=== PATIENT | male | born 1970 | race Caucasian/White ===

== ENCOUNTER 2022-10-24 11:51 | Emergency (ER) | payer OTHER, SELFPAY ==
--- NOTE | ~2022-10-24 | CT_ITS ---
EXAMINATION: CT FACIAL BONES WITH CONTRAST CLINICAL INFORMATION: Right facial swelling. Poor dentition. COMPARISON: Head CT 11/02/2011 TECHNIQUE: Multidetector CT imaging of the maxillofacial bones was performed following the uneventful administration of 85 mL Omnipaque 350 intravenous contrast. Coronal and sagittal reformatted images were obtained. This CT examination was performed using dose optimization techniques as appropriate, variously including the following: *Automated exposure control *Adjustment of mA and/or kV according to patient size (this includes techniques or standardized protocols for targeted exams where dose is matched to indication/reason for exam; i.e. extremities or head) *Use of iterative reconstruction technique DLP: 440 mGy-cm FINDINGS: Enlarged right level II lymph nodes measure 0.7 x 0.9 x 1.1 cm and 1.2 x 0.7 x 1.6 cm. There is asymmetric infiltration of the right mandibular subcutaneous tissues with overlying skin thickening. There is asymmetric soft tissue thickening of the right orbicularis cordell, zygomaticus major and levator anguli cordell muscles. Left mandibular molar appears fragmented with large periapical lucency. There are multiple maxillary periapical lucencies as well as lucencies involving the right maxillary molar, right mandibular premolars and bilateral mandibular incisors. The largest lucencies are within tooth #44 and within tooth #16. No evidence of displaced maxillofacial bone fractures. The temporomandibular joints articulate normally. Normal appearance of the intraconal and extraconal fat. There is There is marked opacification of the right maxillary sinus and ethmoid air cells. Mastoid air cells are clear. There is medial bowing of the right lamina papyracea which may be related to previous trauma. CT/CT facial bones w IV con IMPRESSION: Large lucencies involving the teeth numbered 16 and 44 on the right side most likely contributing to soft tissue thickening of the right facial muscles, infiltration of the subcutaneous tissues and overlying skin thickening. This most likely represents phlegmon and cellulitis. There is no focal/drainable fluid collection. Enlarged right level II lymph nodes are likely on a reactive basis. Extensive opacification of the right maxillary sinus and ethmoid air cells.
--- NOTE | 2022-10-24 12:00 | ED.GENADULT ---
HPI - General Adult General Chief complaint: General Medical Stated complaint: Facial swelling Time Seen by Provider: 10/24/22 12:14 Source: patient Mode of arrival: ambulatory Limitations: no limitations History of Present Illness HPI narrative: 52-year-old male presents with facial swelling for the past 4 days worsening, patient reports he is having some soreness to his right lower gum, he reports he has bad teeth has not seen a dentist in a while, is in the process of getting a PCP has an appointment with a PCP in the next 2 weeks, he reports that he has multiple fractured teeth and cavities, he reports he wants to see a dentist soon. Denies fevers, chills, difficulty controlling secretions, chest pain, shortness of breath, sore throat, nausea, vomiting, numbness, tingling, headache, vision changes in dizziness. Related Data Previous Rx's Medication Instructions Recorded amoxicillin 875 mg-potassium 1 tab PO BID 10 days #20 tabs 10/24/22 clavulanate 125 mg tablet Allergies Allergy/AdvReac Type Severity Reaction Status Date / Time hydrochlorothiazide Allergy Unknown Unknown Verified 10/24/22 12:00 Review of Systems Review of Systems: Constitutional : No Weight loss, No Fever, No Chills, No Fatigue, No Malaise ENT/Mouth : No sore throat, No Rhinorrhea, + facial swelling Eyes: No Eye Pain, No Swelling, No Redness Cardiovascular : No Chest Pain, No SOB, No Dyspnea on Exertion, No Orthopnea, No Edema, No Palpitations Respiratory : No Cough, No Sputum, No Wheezing Gastrointestinal : No Nausea, No Vomiting, No Diarrhea, No Constipation, No abdominal Pain, No Hematochezia, No Melena Genitourinary : No Dysuria, No Urinary Frequency, No Hematuria, Musculoskeletal : No joint pain, No Myalgias, No Joint Swelling Skin : No Skin Lesions, No rash Neuro : No Weakness, No Numbness, No Dizziness, No Headache Psych : No Anxiety/Panic, No Depression All other systems reviewed and are negative Yes all other systems are reviewed and are negative [facility] Past Medical History Attestation statement: The following information was validated with the patient. Source: old records reviewed and nursing notes reviewed Social History Social History Alcohol intake: never Smoked in Last 30 Days: No Use of substances other than those prescribed or required for medical reasons: No Advance Directives: No Advance Directives Information Provided: Yes Physical Exam ED Vital Signs: Vital Signs - 24 hr 10/24/22 12:01 Temperature 98 F Pulse Rate 100 Respiratory Rate 19 Blood Pressure 155/104 H Pulse Oximetry 100 Oxygen Delivery Method Room Air BMI result Body Mass Index 28.6 vital signs stable slightly hypertensive likely secondary to pain/discomfort Appearance: Alert.? Oriented X3.? No acute distress.? Head: Normocephalic, atraumatic, no step-offs or deformities Eyes: Pupils equal, round and reactive to light.? ENT: Pharynx normal.? uvula midline. Speaking in full sentences controlling secretions well. + There is swelling noted to the right cheek, and there is discomfort with palpation of right lower gum region, poor dentition throughout with multiple fractured teeth, dental caries, halitosis noted. Unable to appreciate any dental abscess. no trismus Neck: Normal inspection.? Neck supple.? CVS: Normal heart rate and rhythm.? Pulses normal.? Respiratory: No respiratory distress.? Breath sounds normal.? Abdomen: Soft and nontender.? Skin: Skin warm and dry.? Normal skin color.? Normal skin turgor.? Extremities: No lower extremity edema.? No calf ttp. 5/5 strength to bilateral upper and lower extremities Back: No midline tenderness, no C-spine tenderness, full range of motion, no CVA tenderness bilaterally Neuro: Oriented X 3.? No motor deficit.? No sensory deficit. CN 2-12 intact Course Course Course Narrative: RME: 52yo M w/no sig PMHx c/o right-sided facial swelling/discomfort since last night. Reports chronic broken teeth to right side. Denies known drainage, fever/chills, difficulty or inability to swallow Right-sided lower facial swelling noted with induration. Poor dentition. No appreciable focal area of fluctuance. Labs, CT ordered Full HPI, ROS and PE to be performed by primary ED provider. Reevaluation(s) Reevaluation #1: CBC with no acute findings. Chemistry unremarkable. Random glucose 425 will give 5 units of subcutaneous insulin, scheduled to see PCP for follow up in two weeks advised him to speak to him about his sugars. CT of face pending. Time: 14:13 Reevaluation #2: patient refusing insulin and states he is now allergic to prednisone so does not want for home. Will discharge him home on Augmentin. No signs of abscess on CT scan, there is cellulitis noted. Discussed case with my attending who agrees with diagnosis and treatment plan. Educated patient on diagnosis and treatment plan, answered all question, patient verbalizes understanding. At this time patient will be discharged home, advised to return with new or worsening symptoms. Educated on worrisome signs and symptoms and when to return. At this time I feel comfortable discharge home. Time: 14:20 Medications Administered Discontinued Medications Generic Name Dose Route Start Last Admin Trade Name Freq PRN Reason Stop Dose Admin Iohexol 100 ml 10/24/22 13:12 10/24/22 13:13 Iohexol 350 Mg/Ml 100 Ml Infus..Btl IV 10/24/22 13:13 85 ml ONCE ONE Administration Medical Decision Making Medical Decision Making [facility] Narrative: 52-year-old male presents with right-sided facial swelling and gum pain, worsening overthe past 3-4 days. Physical examination with right-sided facial swelling, Pharynx normal.? uvula midline. Speaking in full sentences controlling secretions well. + There is swelling noted to the right cheek, and there is discomfort with palpation of right lower gum region, poor dentition throughout with multiple fractured teeth, dental caries, halitosis noted. Unable to appreciate any dental abscess. no trismus likely poor dentition with possible cellulitis or abscess. Unlikely Clayton's, no signs of airway compromise or necrotizing infection. Plan labs, CT scan Differential Diagnosis Differential Diagnoses: The differential diagnosis associated with the presentation includes likely poor dentition with possible cellulitis or abscess. Unlikely Clayton's, no signs of airway compromise or necrotizing infection. Admission/Observation Consideration of admission/observation: Escalation of care including admission/observation considered unlikely Lab Data [facility] Lab Attestation statement: I reviewed the patient's lab results. 10/24/22 12:14 10/24/22 12:14 Labs: Lab Results 10/24/22 10/24/22 Range/Units 12:14 12:14 WBC 9.3 (4.8-10.8) X10*3/uL RBC 5.46 (4.60-5.80) X10*6/uL Hgb 16.8 (14.0-18.0) g/dl Hct 49.2 (42.0-52.0) % MCV 90.1 (80.0-98.0) fL MCH 30.8 (27.0-33.0) pg MCHC 34.1 (31.0-36.0) g/dl RDW 12.6 (11.0-16.0) % Plt Count 142 L (160-400) X10*3/uL MPV 9.9 (9.4-12.4) fL Immature Gran % (Auto) 0.4 (0.0-0.4) % Neut % (Auto) 74.4 H (45-73) % Lymph % (Auto) 16.9 L (20-40) % Ashe % (Auto) 6.3 (2-11) % Eos % (Auto) 1.7 (0-4) % Baso % (Auto) 0.3 (0-2) % Lymph # (Auto) 1.6 (1.2-4.9) X10*3/uL Ashe # (Auto) 0.6 (0.1-1.2) X10*3/uL Eos # (Auto) 0.2 (0.0-0.4) X10*3/uL Baso # (Auto) 0.0 (0.0-0.2) X10*3/uL Abs Immat Gran (auto) 0.04 H (0.00-0.03) X10*3/uL Absolute Neuts (auto) 6.9 (2.0-8.3) x10*3/uL Absolute Nucleated RBC 0.000 (0.0-0.012) X10*3/uL Nucleated RBC % (auto) 0.0 (0.0-0.2) /100WBC Sodium 137 (135-145) mmol/L Potassium 4.2 (3.3-5.1) mmol/L Chloride 102 (96-108) mmol/L Carbon Dioxide 27 (22-29) mmol/L Anion Gap 12 (12-20) BUN 17 H (9-16) mg/dL Creatinine 1.35 (0.5-1.4) mg/dL Estim Creat Clear Calc 83.0 Estimated GFR 56 Random Glucose 425 H* (60-115) mg/dL Calcium 9.4 (8.4-10.2) mg/dL Independent Interpretation I performed an independent interpretation of an: CT Scan Radiology Impression Discussion of test interpretation with radiology: I have reviewed the radiologist's reading. Core Measures AMI core measures followed: Yes Measure exclusions: not indicated Critical Care Time Critical Care Time Critical Care Time: No Discharge Plan Discharge Clinical Impression: Facial swelling, Dental caries, Poor dentition, High blood sugar, Cellulitis Patient Disposition: Home, Self-Care Instructions: Tooth Extraction (DC) Additional Instructions: Take your medications as prescribed. If you were prescribed antibiotics today, it is important that you take your medication to their entirety, do not skip any doses, do not finish them early. Follow-up with your primary care provider this week. Return to the emergency department with new or worsening symptoms. Such as fevers, chills, chest pain, shortness of breath, nausea, vomiting, dizziness, headache, vision changes, lethargy , worsening swelling, trouble controlling your secretions In case of emergency call 911 your noted to have a high sugar here in the department please address this with your primary care provider. CT/CT facial bones w IV con IMPRESSION: Large lucencies involving the teeth numbered 16 and 44 on the right side most likely contributing to soft tissue thickening of the right facial muscles, infiltration of the subcutaneous tissues and overlying skin thickening. This most likely represents phlegmon and cellulitis. There is no focal/drainable fluid collection. ? Enlarged right level II lymph nodes are likely on a reactive basis. ? Extensive opacification of the right maxillary sinus and ethmoid air cells. Prescriptions: New amoxicillin-pot clavulanate 875-125 mg tablet 1 tab PO BID 10 Days Qty: 20 0RF Referrals: [facility] [Primary Care Provider] - 2 days
[2022-10-24 12:01] VITALS: BP 155/104; PULSE 100; RESP 19; TEMP 36.6; O2SAT 100; BMI 28.6
[2022-10-24 12:23] LABS: MANUAL DIFF FLAG NO
[2022-10-24 12:29] LABS: Basophils Percent Auto 0.3 % (0-2); Eosinophils Absolute Auto 0.2 X10*3/uL (0.0-0.4); Eosinophils Percent Auto 1.7 % (0-4); Hematocrit 49.2 % (42.0-52.0); Hemoglobin 16.8 g/dl (14.0-18.0); Imm Gran Abs Auto 0.04 X10*3/uL (0.00-0.03); Imm Gran Pct Auto 0.4 % (0.0-0.4); Lymphocytes Absolute Auto 1.6 X10*3/uL (1.2-4.9); Lymphocytes Percent Auto 16.9 % (20-40); Mean Corpuscular HGB Conc 34.1 g/dl (31.0-36.0); Mean Corpuscular Hemoglobin 30.8 pg (27.0-33.0); Mean Corpuscular Volume 90.1 fL (80.0-98.0); Mean Platelet Volume 9.9 fL (9.4-12.4); Monocytes Absolute Auto 0.6 X10*3/uL (0.1-1.2); Monocytes Percent Auto 6.3 % (2-11); Neutrophils Absolute Auto 6.9 x10*3/uL (2.0-8.3); Neutrophils Percent Auto 74.4 % (45-73); Platelet Count 142 X10*3/uL (160-400); Red Blood Count 5.46 X10*6/uL (4.60-5.80); Red Cell Distribution Width 12.6 % (11.0-16.0); White Blood Count 9.3 X10*3/uL (4.8-10.8)
[2022-10-24 12:40] LABS: Anion Gap 12 (12-20); Blood Urea Nitrogen 17 mg/dL (9-16); Calcium 9.4 mg/dL (8.4-10.2); Carbon Dioxide 27 mmol/L (22-29); Chloride 102 mmol/L (96-108); Estimated Glomerular Filt Rate 56; Glucose Random 425 mg/dL (60-115); Potassium 4.2 mmol/L (3.3-5.1); Sodium 137 mmol/L (135-145)
--- NOTE | 2022-10-24 12:49 | PC.NURSE ---
20G IV placed in right AC- pt to have CT with contrast, answered all questions, call forte within reach
--- NOTE | 2022-10-24 12:50 | PC.NURSE ---
AUGUSTUS Akins notified of critical glucose level, no new orders at this time
[2022-10-24] MEDS: iohexoL 350 MG/ML 100 ML INFUS..BTL IV (13:13)
--- NOTE | 2022-10-24 14:20 | PC.NURSE ---
5 units lispro ordered for critical high of 423- pt refusing insulin at this time. 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
--- NOTE | 2022-10-24 14:36 | PC.NURSE ---
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 advised pt of importance on insulin, and the effects of high blood sugar. pt refuses. pt also sts he is allergic to prednisone. provider aware.
== END 2022-10-24 14:42 | disposition home or self-care (01) ==
PROVIDERS: Physician Assistant; Emergency Provider Emergency Medicine
DX: L03.211 Cellulitis of face (principal); K02.9 Dental caries, unspecified; R73.9 Hyperglycemia, unspecified
CPT/HCPCS: 36415; 70487; 80048; 85025; 99283; 99284; Q9967

== ENCOUNTER 2023-12-09 12:38 | Emergency (ER) | payer OTHER, SELFPAY ==
--- NOTE | ~2023-12-09 | US_ITS ---
EXAMINATION: US VENOUS ULTRASOUND WITH DOPPLER LOWER EXTREMITY, LEFT CLINICAL INFORMATION: Pain COMPARISON: Lower extremity ultrasound 520 05/16/2010 TECHNIQUE: Ultrasound of the deep veins is performed from the hip to the calf with compression sonography and color and pulse Doppler assessment. Spectral analysis with color-flow imaging is performed. FINDINGS: There is normal venous compression and respiratory variation and augmented flow. The visualized common femoral vein, superficial femoral vein, profunda femoral vein, popliteal vein, and the trifurcation region shows no evidence of deep venous thrombosis. A 6 cm complex fluid collection in the popliteal fossa which may reflect a complex Parry's cyst. US/US venous duplex LE LT IMPRESSION: 1. No DVT demonstrated in the left lower extremity. 2. A 6 cm complex fluid collection in the popliteal fossa which may reflect a complex Parry's cyst.
--- NOTE | 2023-12-09 12:43 | ED_ITS ---
HPI - Extremity Injury (Lower) General Chief Complaint: Wound/Laceration Stated Complaint: L leg/knee inj Time Seen by Provider: 12/09/23 13:01 Source: patient Mode of arrival: ambulatory Limitations: no limitations History of Present Illness ED Provider: Blanca Delaney APRN HPI Narrative: 53 yo male here with complaints of acute on chronic LLE pain/swelling x 2 weeks. Reports had had intermittent pain/swelling since 2010. Reports initially had an abscess' in the left calf which he was seen at [facility] ER for. They recommended drainage, ultimately he left AMA and proceeded to drain it at home with both a needle and scalpel. Reports has had subsequent cellulitis to the left lower extremity several times and has been on antibiotics. He reports he has been seen at 3 different hospitals as well as Infectious Disease doctors for this. Patient reports some chronic swelling which has lingered in the left lower extremity which he believes is secondary to his HSV diagnosis and he has been ordering acyclovir from [facility] which he has been taking at home. He tells me he follows a holistic diet and takes anti-inflammatory such as tumeric at home and he believes he is quite healthy. He does not currently have a primary care doctor. He saw a PCP 1 year ago after an ER visit which he was noted to have hypertension and hyperglycemia however he was unhappy with this doctor's recommendations and did not follow-up. He has declined take blood pressure and diabetes medications to this point as he is concerned it will cause a reactivation of his HSV. He contributes his hypertension and tachycardia to white coat syndrome although he has never checked his blood pressure at home. He believes his blood sugar may be elevated because he has been drinking ice tea daily with sugar. He smokes cigarettes daily. Denies alcohol or drug use. Related Data Previous Rx's ?Medication ?Instructions ?Recorded blood sugar diagnostic (Freestyle #100 ea 12/09/23 [employer] Test Strips) blood-glucose meter #1 ea 12/09/23 lancets 28 gauge (FreeStyle #100 ea 12/09/23 Lancets) metformin 500 mg tablet 500 mg PO BID #60 tabs 12/09/23 Allergies Allergy/AdvReac Type Severity Reaction Status Date / Time hydrochlorothiazide Allergy Unknown Unknown Verified 12/09/23 12:48 prednisone Allergy Unknown Verified 12/09/23 12:48 Review of Systems 2 Review of Systems: Yes all other systems are reviewed and are negative Constitutional: Constitutional: Reports no additional constitutional complaints, Denies body ache(s), Denies chills, Denies fever(s), Denies headache(s) and Denies weakness Eyes: Eyes: Reports no additional eye complaints and Denies change in vision ENT: Reports system reviewed and no additional complaints, except as documented, Denies dizziness, Denies headache(s), Denies nasal congestion, Denies nasal discharge and Denies neck pain Cardiovascular: Cardiovascular: Reports no additional cardiovascular complaints, Denies chest pain, Reports leg edema and Denies dyspnea Respiratory: Respiratory: Reports no additional respiratory complaints, Denies cough and Denies dyspnea Gastrointestinal: Gastrointestinal: Reports no additional gastrointestinal complaints, Denies abdominal pain, Denies diarrhea, Denies nausea and Denies vomiting Genitourinary: Genitourinary: Denies urinary incontinence Musculoskeletal: Musculoskeletal: Reports no additional musculoskeletal complaints, Denies back pain, Denies arthralgias, Denies joint swelling, Denies neck pain, Denies numbness and Denies tingling Integumentary/Breasts: Skin/Breast: Reports system reviewed and no additional complaints, except as docu and Denies rash Neurologic: Reports system reviewed and no additional complaints, except as documented, Denies Abnormal speech present, Denies dizziness, Denies headache(s), Denies numbness, Denies tingling and Denies weakness PMFSH Past Medical History Attestation statement: The following information was validated with the patient. Source: old records reviewed and nursing notes reviewed Medical History No pertinent family history HSV-1 (herpes simplex virus 1) infection Surgical History H/O right wrist surgery Social History Social History Housing: House Alcohol intake: never Patient Tobacco Use Status: Former Tobacco user Tobacco use type: Cigarette Cigarettes Per Day: 5 Years Smoked: 35 e-Cigarette/Vaping Use: Never Used Advance Directives: No Advance Directives Information Provided: No Do you have a plan to hurt others: No Plan service: No Current occupational status: disabled Cognitive needs: No Hearing needs: No Vision needs: No Physical Exam 2 Vital Signs: Vital Signs: Last Vital Signs Temp 97.8 F 12/09/23 15:43 Pulse 111 H 12/09/23 15:43 Resp 20 12/09/23 15:43 BP 174/102 H 12/09/23 15:43 Pulse Ox 97 12/09/23 15:29 O2 Del Method Room Air 12/09/23 15:29 BMI result Body Mass Index 25.7 Const: General: cooperative, healthy appearing, comfortable and no acute distress Orientation/consciousness: patient oriented x3 Limitations: no limitations HEENT: Head: Yes normal to inspection Ears: hearing grossly normal bilaterally General nose exam: Normal external nose present Face and sinus: Yes normal facial exam Mouth: Normal oral and palatal mucosa present Throat: Yes posterior oropharynx normal Eyes: General: appearance normal, both eyes and all related structures P upils: Equal, round and reactive pupils present Neck: Neck: Yes normal visual inspection Chest: Chest palpation & inspection: normal inspection of the chest Resp: Effort & Inspection: normal respiratory effort Auscultation: clear to auscultation bilaterally Cardio: Rate: regular rate Rhythm: regular rhythm Peripheral pulses: P eripheral pulses 2+ throughout GI: Inspection: Yes normal to inspection Palpation (GI): Soft to palpation and nontender Auscultation: normal bowel sounds Back/Spine/Pelvis: Thoracic/Lumbar Spine: thoracic and lumbar spine normal to inspection Skin: General skin exam: no rashes or lesions noted Neuro: General: patient oriented x3, no focal motor deficits and normal sensation to monofilament Cranial nerves: Yes Equal, round and reactive pupils present Cognition (Neuro): normal cognition Speech: No Abnormal speech present Gait exam (Neuro): Normal gait present Motor exam (neuro): 5/5 motor strength present throughout Extrem: Other: There is some swelling over the medial aspect and posterior aspect of the left knee as well some slight lower extremity swelling which is nonpitting. Patient has normal CMS distally. His compartments are soft and compressible. There is no warmth, redness, open areas noted. General: Yes normal to inspection Course Course Course Narrative: This is a Rapid Medical Exam performed in triage by Mary Pereira PA-C. Full HPI, ROS and PE to be performed by primary ED provider. 53 year-old M w/ PMHx HTN, ?HSV (states ID from [facility] [place] [facility] but he get meds from other country[place] presenting to the ED c/o acute on chronic LLE pain x2 wks. Reports intermittent flares of pain/infection to leg from old leg injury which has required IV abx in the past PE: In wheelchair, no LLE pitting edema, no erythema or warmth. +calf ttp. Unable to visualize knee in triage Plan: labs, US Reevaluation(s) Reevaluation #1: Labs show hyperglycemia with no evidence of DKA. Patient declined insulin and IV fluids in the emergency room. He initially declined going home with any diabetic medications however after a shared his A1c with him he was more willing to accept his diabetes diagnosis. I will discharge him home with a glucometer, metformin 500 mg b.i.d. He did see a PCP last October who was not happy with however he would be willing to see him again until he finds a primary care doctor that he prefers. We discussed diabetic diet at home. Patient for tells me he knows how to check his blood sugar at home and use a glucometer as he has done it before (for a friend). As far as his hypertension he was unwilling to accept any antihypertensive prescriptions for home. He is willing to check his blood pressure at home will buy a blood pressure machine. I did explain to him that untreated hypertension can be quite dangerous and he is aware of this. I informed of his results of his ultrasound and he was placed in the Nacho wrap and he has crutches at home which he will use. Reviewed worrisome signs and symptoms of when to return to the emergency room. Comfortable plan for discharge home Medications Administered Discontinued Medications Generic Name Dose Route Start Last Admin Trade Name Nash PRN Reason Stop Dose Admin Acetaminophen 975 mg 12/09/23 14:32 12/09/23 14:38 Acetaminophen 325 Mg Tablet PO 12/09/23 14:33 975 mg ONCE ONE Administration Medical Decision Making Medical Decision Making [facility] Narrative: This is a 53-year-old male who has acute on chronic left lower extremity swelling and pain with a remote history of infection and cellulitis in the same extremity who has been resistant to medical care to this point. It appears that he likely has both hypertension and diabetes but has refused to take medications for either. He has a lot of concern over his past diagnosis of HSV and if medications may reactivate this. I spent approximately 30 minutes speaking to him about the complications that may occur from untreated diabetes and hypertension. I did recommend that we put him on a low-dose antihypertensive as well as metformin and have him monitor his blood pressures and blood sugars at home daily but declined this. He is willing to see a primary care doctor again. He is aware that untreated he may have multiple complications which may lead to his . He would like me to address his left lower extremity swelling and pain today I will order labs UA, ultrasound. On physical exam there are no findings to suggest cellulitis, deep space infection, compartment syndrome, necrotizing fasciitis. There is some swelling over the medial aspect and posterior aspect of the left knee as well some slight lower extremity swelling which is nonpitting. Patient has normal CMS distally. His compartments are soft and compressible. There is no warmth, redness, open areas noted. Differential Diagnosis Differential Diagnoses: The differential diagnosis associated with the presentation includes See discussion above Admission/Observation Consideration of admission/observation: Escalation of care including admission/observation considered See discussion and course of care Lab Data MDM Lab Attestation statement: I reviewed the patient's lab results. 12/09/23 12:55 12/09/23 12:55 Labs: Lab Results 12/09/23 12/09/23 Range/Units 12:55 14:02 WBC 14.4 H (4.8-10.8) X10*3/uL RBC 5.00 (4.60-5.80) X10*6/uL Hgb 15.8 (14.0-18.0) g/dl Hct 44.3 (42.0-52.0) % MCV 88.6 (80.0-98.0) fL MCH 31.6 (27.0-33.0) pg MCHC 35.7 (31.0-36.0) g/dl RDW 12.4 (11.0-16.0) % Plt Count 203 D (160-400) X10*3/uL MPV 9.9 (9.4-12.4) fL Immature Gran % (Auto) 0.4 (0.0-0.4) % Neut % (Auto) 80.4 H (45-73) % Lymph % (Auto) 11.4 L (20-40) % Eaton % (Auto) 7.4 (2-11) % Eos % (Auto) 0.1 (0-4) % Baso % (Auto) 0.3 (0-2) % Lymph # (Auto) 1.6 (1.2-4.9) X10*3/uL Eaton # (Auto) 1.1 (0.1-1.2) X10*3/uL Eos # (Auto) 0.0 (0.0-0.4) X10*3/uL Baso # (Auto) 0.0 (0.0-0.2) X10*3/uL Abs Immat Gran (auto) 0.06 H (0.00-0.03) X10*3/uL Absolute Neuts (auto) 11.6 H (2.0-8.3) x10*3/uL Absolute Nucleated RBC 0.000 (0.0-0.012) X10*3/uL Nucleated RBC % (auto) 0.0 (0.0-0.2) /100WBC PT 14.7 H (11.1-13.3) SEC INR 1.2 H (0.9-1.1) Sodium 133 L (135-145) mmol/L Potassium 4.2 (3.3-5.1) mmol/L Chloride 97 (96-108) mmol/L Carbon Dioxide 24 (22-29) mmol/L Anion Gap 16 (12-20) BUN 17 H (9-16) mg/dL Creatinine 0.91 (0.5-1.4) mg/dL Estim Creat Clear Calc 111.6 Estimated GFR > 60 Random Glucose 490 H* (60-115) mg/dL Estimat Average Glucose 280 mg/dL Hemoglobin A1c % 11.4 H (<6.0) % Calcium 9.8 (8.4-10.2) mg/dL B-Natriuretic Peptide 11 (<100) pg/mL TSH 1.47 (0.32-4.0) uIU/mL Urine Color Yellow Urine Appearance Clear Urine pH 5.5 (5.0-9.0) Ur Specific [place] >= 1.030 H (1.005-1.025) Urine Protein Trace (Neg-Trace) mg/dL Urine Glucose (UA) >=1000 H (Negative) mg/dL Urine Ketones 40 (Negative) mg/dL Urine Blood Trace H (Negative) Urine Nitrite Negative (Negative) Ur Leukocyte Esterase Negative (Negative) Urine RBC 3-5 H (0-2) /HPF Urine WBC 0-5 (0-5) /HPF Ur Squamous Epith Cells 0-2 (0-2) /HPF Urine Bacteria None Seen (None Seen) Hyaline Casts 0-2 (0-2) /LPF Independent Interpretation I performed an independent interpretation of an: Ultrasound Interpretation: I independently reviewed the ultrasound agree with the radiology report Radiology Impression Discussion of test interpretation with radiology: I have reviewed the radiologist's reading. Radiologist Impression: [address] [address] Ultrasound Report Signed Patient: Yoel Henderson MR#: [id number] : 1970 Acct:[id number] Age/Sex: 53 / M ADM Date: 12/09/23 Loc: .ED Attending Dr: Ordering Physician: Mary Pereira Date of Service: 12/09/23 Procedure(s): US venous duplex LE LT Accession Number(s): [id number] cc: Physician,None ; Mary Pereria~ EXAMINATION: US VENOUS ULTRASOUND WITH DOPPLER LOWER EXTREMITY, LEFT CLINICAL INFORMATION: Pain COMPARISON: Lower extremity ultrasound 520 05/16/2010 TECHNIQUE: Ultrasound of the deep veins is performed from the hip to the calf with compression sonography and color and pulse Doppler assessment. Spectral analysis with color-flow imaging is performed. FINDINGS: There is normal venous compression and respiratory variation and augmented flow. The visualized common femoral vein, superficial femoral vein, profunda femoral vein, popliteal vein, and the trifurcation region shows no evidence of deep venous thrombosis. A 6 cm complex fluid collection in the popliteal fossa which may reflect a complex Parry's cyst. US/US venous duplex LE LT IMPRESSION: 1. No DVT demonstrated in the left lower extremity. 2. A 6 cm complex fluid collection in the popliteal fossa which may reflect a complex Parry's cyst. Discharge Plan Discharge Clinical Impression: Diabetes, Hypertension, Parry's cyst Patient Disposition: Home, Self-Care Instructions: How to Take a Blood Pressure (ED), Type 2 Diabetes in Adults: New Diagnosis (ED), Bakers Cyst (ED), Hypertension (ED), How to Check your Blood Sugar (ED) Additional Instructions: The ultrasound of your left lower extremity shows a Parry's cyst behind the left knee. Use a compression bandage and crutches at home. This continues to give you pain you may want to see Orthopedics as a follow-up. Use Motrin or Tylenol home for pain Your blood sugar today is 490. Your A1c is 11.4 which means that your average blood sugar is 280. You need to check your blood sugar daily and write down your numbers. Take the metformin as prescribed. Follow-up with primary care Your blood pressure was elevated today. We did recommend that you be started on antihypertensive but at this time you declined that. Please check your blood pressure daily Prescriptions: New metformin 500 mg tablet 500 mg PO BID Qty: 60 0RF (DME) blood-glucose meter Kit See Rx Instructions .Route Qty: 1 0RF Rx Instructions: As directed (DME) lancets [FreeStyle Lancets] 28 gauge misc See Rx Instructions .Route Qty: 100 0RF Rx Instructions: As directed (DME) Freestyle [employer] Test Strips Strip See Rx Instructions .Route Qty: 100 0RF Rx Instructions: As directed Referrals: [facility] [place] [facility] [Provider Group] - 1 week Brooke Vidal CNP [Nurse Practitioner] - 1 week Interventions: ED Discharge Assessment Last Done: 12/09/23 15:43 Discharge Date/Time: 12/09/23 15:43 Print Language: Vietnamese
[2023-12-09 12:44] VITALS: BP 163/112; PULSE 131; RESP 18; TEMP 36.7; O2SAT 96; BMI 25.7
[2023-12-09 13:11] LABS: MANUAL DIFF FLAG NO
[2023-12-09 13:16] LABS: Basophils Percent Auto 0.3 % (0-2); Eosinophils Percent Auto 0.1 % (0-4); Hematocrit 44.3 % (42.0-52.0); Hemoglobin 15.8 g/dl (14.0-18.0); Imm Gran Abs Auto 0.06 X10*3/uL (0.00-0.03); Imm Gran Pct Auto 0.4 % (0.0-0.4); Lymphocytes Absolute Auto 1.6 X10*3/uL (1.2-4.9); Lymphocytes Percent Auto 11.4 % (20-40); Mean Corpuscular HGB Conc 35.7 g/dl (31.0-36.0); Mean Corpuscular Hemoglobin 31.6 pg (27.0-33.0); Mean Corpuscular Volume 88.6 fL (80.0-98.0); Mean Platelet Volume 9.9 fL (9.4-12.4); Monocytes Absolute Auto 1.1 X10*3/uL (0.1-1.2); Monocytes Percent Auto 7.4 % (2-11); Neutrophils Absolute Auto 11.6 x10*3/uL (2.0-8.3); Neutrophils Percent Auto 80.4 % (45-73); Platelet Count 203 X10*3/uL (160-400); Red Cell Distribution Width 12.4 % (11.0-16.0); White Blood Count 14.4 X10*3/uL (4.8-10.8)
[2023-12-09 13:24] LABS: INTERNATIONAL NORM RATIO 1.2 (0.9-1.1); Prothrombin Time 14.7 SEC (11.1-13.3)
[2023-12-09 13:38] VITALS: BP 172/118; PULSE 115; RESP 20; O2SAT 95
[2023-12-09 13:49] LABS: Anion Gap 16 (12-20); Blood Urea Nitrogen 17 mg/dL (9-16); Calcium 9.8 mg/dL (8.4-10.2); Carbon Dioxide 24 mmol/L (22-29); Chloride 97 mmol/L (96-108); Creatinine Clr Calc Pharmacy 111.6; Estimated Glomerular Filt Rate > 60; Glucose Random 490 mg/dL (60-115); Potassium 4.2 mmol/L (3.3-5.1); Sodium 133 mmol/L (135-145)
[2023-12-09 13:54] LABS: B Type Natriuretic Peptide 11 pg/mL (<100)
[2023-12-09 14:15] LABS: Appearance Urine Clear; Color Urine Yellow; Glucose Urine UA >=1000 mg/dL (Negative); Leukocyte Esterase Urine Negative (Negative); Nitrite Urine Negative (Negative); PH 5.5 (5.0-9.0); Specific Gravity - Urine >= 1.030 (1.005-1.025); UMIC TRIGGER UACC YES; Urine Blood Trace (Negative); Urine Ketones 40 mg/dL (Negative); Urine Protein Trace mg/dL (Neg-Trace)
[2023-12-09 14:20] LABS: Bacteria Urine None Seen (None Seen); Hyaline Casts Urine 0-2 /LPF (0-2); Squamous Epithelial Cell Urine 0-2 /HPF (0-2); WBC Urine 0-5 /HPF (0-5)
[2023-12-09 14:31] LABS: Estimated Average Glucose 280 mg/dL; Hemoglobin A1c % 11.4 % (<6.0)
[2023-12-09] MEDS: Acetaminophen 325 MG TABLET 975 MG PO (14:38)
[2023-12-09 15:12] LABS: TSH reflex Free T4 1.47 uIU/mL (0.32-4.0)
[2023-12-09 15:29] VITALS: BP 204/122; PULSE 115; RESP 19; O2SAT 97
[2023-12-09 15:43] VITALS: BP 174/102; PULSE 111; RESP 20; TEMP 36.6
== END 2023-12-09 15:43 | disposition home or self-care (01) ==
PROVIDERS: Nurse Practitioner Family; Physician Assistant; Emergency Provider Emergency Medicine
DX: E11.9 Type 2 diabetes mellitus without complications (principal); I10 Essential (primary) hypertension; M71.22 Synovial cyst of popliteal space [Baker], left knee; M79.662 Pain in left lower leg; F17.210 Nicotine dependence, cigarettes, uncomplicated
CPT/HCPCS: 36415; 80048; 81001; 83036; 83880; 84443; 85025; 85610; 93971; 99284

== ENCOUNTER 2023-12-21 15:26 | Emergency (ER) | payer OTHER, SELFPAY ==
--- NOTE | ~2023-12-21 | US_ITS ---
EXAMINATION: US EXTREMITY, NONVASCULAR CLINICAL INFORMATION: Worsening Parry's cyst COMPARISON: 11/19/2023 TECHNIQUE: Multiple sonographic views of the left popliteal fossa were obtained. FINDINGS: Heterogeneous ill-defined area in the popliteal fossa measures 7.9 x 4.6 x 5.9 cm in size suggesting likely ruptured cyst or hematoma. This does appear slightly increased from the prior study although the previous cyst had more fluid appearance US/US extremity nonvascular IMPRESSION: Heterogeneous ill-defined area in the popliteal fossa suggesting ruptured popliteal cyst or hematoma. This does appear slightly increased in size from the prior study although the previous cyst had more fluid appearance.
[2023-12-21 15:40] VITALS: BP 174/112; PULSE 110; O2SAT 99
[2023-12-21 15:43] VITALS: BP 174/109; PULSE 111; RESP 18; TEMP 36.6; O2SAT 97; BMI 27.0
--- NOTE | 2023-12-21 15:48 | ED.GENADULT ---
HPI - General Adult General Chief complaint: Extremity Injury, Lower Stated complaint: pain behind L knee Time Seen by Provider: 12/21/23 21:20 Source: patient and old records reviewed History of Present Illness ED Provider: Gemini FALCON narrative: 53-year-old male with past medical history of hypertension, hyperglycemia presents for left leg swelling and pain. Patient is a poor historian and isn't entirely coherent however was seen here last month and diagnosed with Parry's cyst. He states the swelling and pain has been getting worse. Provider note from before states that patient has been dealing with housing instability and is having increasing difficulty walking Related Data Home Medications ?Medication ?Instructions ?Recorded ?Confirmed cephalexin 500 mg capsule 500 mg PO QID 12/22/23 12/22/23 hydralazine 10 mg tablet 10 mg PO BID 12/22/23 12/22/23 prednisone 10 mg tablet 10 mg PO 12/22/23 Previous Rx's ?Medication ?Instructions ?Recorded blood sugar diagnostic (Freestyle #100 ea 12/09/23 [employer] Test Strips) blood-glucose meter #1 ea 12/09/23 lancets 28 gauge (FreeStyle #100 ea 12/09/23 Lancets) metformin 500 mg tablet 500 mg PO BID #60 tabs 12/09/23 Allergies Allergy/AdvReac Type Severity Reaction Status Date / Time hydrochlorothiazide Allergy Unknown Unknown Verified 12/21/23 15:46 doxazosin [From Cardura] AdvReac Irritable Verified 12/21/23 15:46 Review of Systems Review of Systems: Left leg pain Yes all other systems are reviewed and are negative [facility] Past Medical History Attestation statement: The following information was validated with the patient. [facility] Narrative: Hypertension, hyperglycemia Source: old records reviewed Medical History No pertinent family history HSV-1 (herpes simplex virus 1) infection Surgical History H/O right wrist surgery Social History Social History Housing: House Alcohol intake: never Patient Tobacco Use Status: Former Tobacco user Tobacco use type: Cigarette Cigarettes Per Day: 5 Years Smoked: 35 Smoked in Last 30 Days: Yes e-Cigarette/Vaping Use: Never Used Advance Directives: No Advance Directives Information Provided: Yes Do you have a plan to hurt others: No Plan service: No Current occupational status: disabled Cognitive needs: No Hearing needs: No Vision needs: No Physical Exam ED Vital Signs: Vital Signs - 24 hr 12/21/23 15:43 12/21/23 20:07 12/22/23 00:00 Temperature 97.9 F 98.3 F 98.9 F Pulse Rate 111 H 99 84 Respiratory Rate 18 20 14 Blood Pressure 174/109 H 155/99 H 158/96 H Pulse Oximetry 97 97 97 Oxygen Delivery Method Room Air Room Air Room Air 12/22/23 02:00 12/22/23 05:57 Temperature 97.8 F 97.8 F Pulse Rate 84 84 Respiratory Rate 16 16 Blood Pressure 150/94 H 157/93 H Pulse Oximetry 96 98 Oxygen Delivery Method Room Air Room Air BMI result Body Mass Index 27.0 Course Course Course Narrative: This is a Rapid Medical Examination (RME) performed by Alaina Garcia PA-C in triage. Full HPI, ROS, assessment and treatment plan per primary provider in the Main ED. 53 yo male here w/ multiple complaints. seen at [facility] [place] ago, diagnosed w/ 6cm bakers cyst to LLE. reports worsening pain, unable to walk. Has been staying at a friend's house as he is unable to climb the stairs at his own house. Admits he is jumping from couch to couch as he does not have a place to live. Looking for rehab facilities. Also recently diagnosed with diabetes and hypertension. States he is not on medication for either of these and can not handle these diagnoses as he is too stressed. Plan: labs, repeat US +/- PT/ case management consultation Medications Administered Generic Name Dose Route Start Last Admin Trade Name Freq PRN Reason Stop Dose Admin Acetaminophen 650 mg 12/22/23 05:42 12/22/23 05:50 Acetaminophen 325 Mg Tablet PO 650 mg ONCE PRN Administration Pain, Moderate(Pain Scale 4-6) Ibuprofen 600 mg 12/22/23 05:40 12/22/23 05:49 Ibuprofen 600 Mg Tablet PO 600 mg Q6H PRN Administration Pain, Moderate(Pain Scale 4-6) Discontinued Medications Generic Name Dose Route Start Last Admin Trade Name Freq PRN Reason Stop Dose Admin Clindamycin HCl 300 mg 12/22/23 02:36 12/22/23 02:43 Clindamycin Hcl 300 Mg Capsule PO 12/22/23 02:37 300 mg TID ONE Administration Insulin Human Regular 3 unit 12/22/23 01:32 12/22/23 01:51 Insulin Regular, Human 100 Unit/Ml 10 Ml Vial IVPUSH 12/22/23 01:33 3 unit ONCE ONE Administration Medical Decision Making Medical Decision Making [facility] Narrative: Patient is left lower extremity swelling. This is concerning for DVT however ultrasound was negative. Ultrasound did note ruptured Parry's cyst which could be the cause for patient's left leg swelling and pain. I am also concerned for cellulitis. Patient has mild erythema to the foot however left lower leg is warm to touch Patient has elevated WBC. I will treat him for cellulitis with clindamycin however I do not think he is safe to be discharged Patient placed in observation for PT and care coordination evaluation Patient signed out to night provider Differential Diagnosis Differential Diagnoses: The differential diagnosis associated with the presentation includes DVT, ruptured Parry cyst, lymphedema Lab Data [facility] Lab Attestation statement: I reviewed the patient's lab results. Elevated WBC 12/21/23 17:08 12/21/23 17:08 Labs: Lab Results 12/21/23 12/21/23 12/22/23 Range/Units 17:08 17:13 01:37 WBC 16.6 H (4.8-10.8) X10*3/uL RBC 4.76 (4.60-5.80) X10*6/uL Hgb 14.6 (14.0-18.0) g/dl Hct 42.4 (42.0-52.0) % MCV 89.1 (80.0-98.0) fL MCH 30.7 (27.0-33.0) pg MCHC 34.4 (31.0-36.0) g/dl RDW 12.3 (11.0-16.0) % Plt Count 349 D (160-400) X10*3/uL MPV 9.3 L (9.4-12.4) fL Immature Gran % (Auto) Cancelled Neut % (Auto) Cancelled Lymph % (Auto) Cancelled Pondera % (Auto) Cancelled Eos % (Auto) Cancelled Baso % (Auto) Cancelled Lymph # (Auto) Cancelled [place] # (Auto) Cancelled Eos # (Auto) Cancelled Baso # (Auto) Cancelled Abs Immat Gran (auto) Cancelled Absolute Neuts (auto) Cancelled Absolute Nucleated RBC 0.000 (0.0-0.012) X10*3/uL Nucleated RBC % (auto) 0.0 (0.0-0.2) /100WBC Neutrophils % (Manual) 93 H (45-73) % Band Neutrophils % 0 L (3-5) % Lymphocytes % (Manual) 4 L (20-40) % Monocytes % (Manual) 3 (2-11) % Abs Neuts (Manual) 15.4 H (2.0-8.3) X10*3/uL Lymphocytes # (Manual) 0.7 L (1.2-4.9) X10*3/uL Monocytes # (Manual) 0.5 (0.1-1.2) X10*3/uL Platelet Estimate NORMAL (NORMAL) Plt Morphology Comment NORMAL RBC Morphology NORMAL Smear Tech's Comments VERIFIED VBG pH 7.56 H (7.32-7.43) VBG pCO2 27 mmHg VBG pO2 125 mmHg VBG HCO3 24 (22-26) mmol/L VBG O2 Saturation 100.0 % VBG Base Excess 3.6 mmol/L Sodium 135 (135-145) mmol/L Potassium 4.1 (3.3-5.1) mmol/L Chloride 100 (96-108) mmol/L Carbon Dioxide 26 (22-29) mmol/L Anion Gap 13 (12-20) BUN 22 H (9-16) mg/dL Creatinine 0.86 (0.5-1.4) mg/dL Estim Creat Clear Calc 118.1 Estimated GFR > 60 POC Glucose 367 H* (60-115) mg/dL Random Glucose 366 H* (60-115) mg/dL Calcium 9.4 (8.4-10.2) mg/dL Magnesium 2.1 (1.6-2.6) mg/dL Total Bilirubin 0.6 (0.0-1.0) mg/dL AST 25 (5-37) U/L ALT 56 H (0-40) U/L Alkaline Phosphatase 84 (39-117) U/L Total Protein 7.0 (6.5-8.0) g/dL Albumin 3.2 L (3.5-5.0) g/dL Beta-Hydroxybutyrate 0.47 H (0.02-0.27) mmol/L Ethyl Alcohol < 10 mg/dL Radiology Impression Discussion of test interpretation with radiology: I have reviewed the radiologist's reading. Radiologist Impression: Ruptured Parry's cyst Discharge Plan Discharge Clinical Impression: Cellulitis, Parry cyst, Left leg swelling Patient Disposition: Still a Patient Prescriptions: No Action hydralazine 10 mg tablet 10 mg PO BID prednisone 10 mg tablet 10 mg PO cephalexin 500 mg capsule 500 mg PO QID metformin 500 mg tablet 500 mg PO BID Qty: 60 0RF (DME) blood-glucose meter Kit See Rx Instructions .Route Qty: 1 0RF Rx Instructions: As directed (DME) lancets [FreeStyle Lancets] 28 gauge misc See Rx Instructions .Route Qty: 100 0RF Rx Instructions: As directed (DME) Freestyle [employer] Test Strips Strip See Rx Instructions .Route Qty: 100 0RF Rx Instructions: As directed Print Language: Chadian ED Observation ED Observation Admit Reason for Observation: Other (Failure to thrive, cellulitis, safe disposition) Anticipated Goals: Discharge Diagnostic Studies: Other (PT and care coordination evaluation) HPI and ROS: 53-year-old male with history of hypertension, hyperglycemia, housing stability presenting for left leg pain found to have a ruptured Parry cyst however leg it is also concern for cellulitis. I ordered antibiotics and place patient in observation for PT and care coordination evaluation MDM: Left lower leg concerning for ruptured Parry cyst vs cellulitis Antibiotics ordered Patient placed in observation
[2023-12-21 17:19] LABS: Hematocrit 42.4 % (42.0-52.0); Hemoglobin 14.6 g/dl (14.0-18.0); Mean Corpuscular HGB Conc 34.4 g/dl (31.0-36.0); Mean Corpuscular Hemoglobin 30.7 pg (27.0-33.0); Mean Corpuscular Volume 89.1 fL (80.0-98.0); Mean Platelet Volume 9.3 fL (9.4-12.4); Platelet Count 349 X10*3/uL (160-400); Red Blood Count 4.76 X10*6/uL (4.60-5.80); Red Cell Distribution Width 12.3 % (11.0-16.0); White Blood Count 16.6 X10*3/uL (4.8-10.8)
[2023-12-21 17:21] LABS: VBG Base Excess 3.6 mmol/L; VBG HCO3 24 mmol/L (22-26); VBG pCO2 27 mmHg; VBG pH 7.56 (7.32-7.43); VBG pO2 125 mmHg
[2023-12-21 17:29] LABS: Venous Blood Gas Refer to POC result
[2023-12-21 17:44] LABS: Beta-Hydroxybutyrate 0.47 mmol/L (0.02-0.27)
[2023-12-21 17:46] LABS: Alanine Aminotransferase 56 U/L (0-40); Albumin Level 3.2 g/dL (3.5-5.0); Alkaline Phosphatase 84 U/L (39-117); Anion Gap 13 (12-20); Aspartate Amino Transferase 25 U/L (5-37); Bilirubin Total 0.6 mg/dL (0.0-1.0); Blood Urea Nitrogen 22 mg/dL (9-16); Calcium 9.4 mg/dL (8.4-10.2); Carbon Dioxide 26 mmol/L (22-29); Chloride 100 mmol/L (96-108); Creatinine Clr Calc Pharmacy 118.1; Estimated Glomerular Filt Rate > 60; Glucose Random 366 mg/dL (60-115); Magnesium 2.1 mg/dL (1.6-2.6); Potassium 4.1 mmol/L (3.3-5.1); Sodium 135 mmol/L (135-145)
[2023-12-21 17:52] LABS: Band Neutrophils Percent 0 % (3-5); Lymphocytes Absolute Manual 0.7 X10*3/uL (1.2-4.9); Lymphocytes Percent Manual 4 % (20-40); Monocytes Absolute Manual 0.5 X10*3/uL (0.1-1.2); Monocytes Percent Manual 3 % (2-11); Neutrophils Absolute Manual 15.4 X10*3/uL (2.0-8.3); Neutrophils Percent Manual 93 % (45-73); Platelet Estimate NORMAL (NORMAL); Platelet Morphology Comment NORMAL; RBC Morphology NORMAL
[2023-12-21 17:53] LABS: SLIDE REVIEW VERIFIED
--- NOTE | 2023-12-21 18:02 | PC.NURSE ---
REMOVED PTS 18G from L HAND PT WAS GOING OUTSIDE TO SMOKE CIGARETTE
[2023-12-21 20:07] VITALS: BP 155/99; PULSE 99; RESP 20; TEMP 36.8; O2SAT 97
--- OUTSIDE RECORDS SUMMARY | 2023-12-21 21:04 | XMS_ITS ---
Care Plan - [facility] Created on: December 21, 2023 Yoel Henderson : 1970 Sex: Male Author Organization [facility] Address [address] [place] [address] Phone Care Team Providers Care Stockkeeper Name Role Phone [facility] Unavailable Unavailable
--- OUTSIDE RECORDS SUMMARY | 2023-12-21 21:04 | XMS_ITS ---
Author Organization [facility] Address [address] [place] [address] Phone Care Team Providers Care Passenger Booking Clerk Name Role Phone [facility] Unavailable [phone] Plan of Treatment No Plan of Treatment Recorded Assessments Includes: Assessments for all patient encounters No Assessments Recorded Medical Equipment - Implanted Devices Includes: Current and historical Devices No Medical Equipment Recorded Medications Administered Includes: Administered Medications in patient's chart No Administered Medications Recorded Results Includes: Results from 12/20/2022 through 12/21/2023 No Results Recorded For Specified Dates History of Present Illness History of Present Illness not supported for this document type No History of Present Illness Recorded Social History No Social History Recorded - Smoking Status Unknown Medical History Includes: Medical History in patient's chart No Medical History Recorded Family History Includes: Family History in patient's chart No Family History Recorded Review of Systems Review of Systems not supported for this document type No Review of Systems Recorded Mental Status No Mental Status Recorded Functional Status No Functional Status Recorded Physical Exam Physical Exam not supported for this document type No Physical Exam Recorded Insurance Includes: Active Insurance Policies Plan Name Member ID Group # Subscriber Relationship Effect alcides Dates 1 - [facility] [id number] Yoel Henderson Self Clinical Notes Includes: Signed Clinical Notes starting from 04/24/2022 No Clinical Notes Recorded
[2023-12-22] VITALS (8 sets, daily range): BP systolic 138–161; BP diastolic 76–100; PULSE 75–86; RESP 14–18; TEMP 36.4–37.3; O2SAT 95–98
[2023-12-22 01:42] LABS: Glucose, Whole Blood 367 mg/dL (60-115)
[2023-12-22 01:48] LABS: Ethanol < 10 mg/dL
[2023-12-22] MEDS: Insulin Regular, Human 100 UNIT/ML 10 ML VIAL IVPUSH (01:51)
--- NOTE | 2023-12-22 01:58 | PC.NURSE ---
IV established to left FA. Pt states they removed my first IV because I went outside to smoke a cigarette. Pt requesting PT/CM, states he is homeless and unable to care for himself. Pt advised he is not able to come/go/leave the hospital to smoke cigarettes, pt verbalized understanding. Pt medicated with IV insulin per JUL. Sup contacted for ABX which is unavailable in ED. Pt resting in bed in POC, continue to monitor.
[2023-12-22] MEDS: Clindamycin HCL 300 MG CAPSULE PO ×2 (02:43→20:52)
[2023-12-22] MEDS: Ibuprofen 600 MG TABLET PO ×3 (05:49→20:54)
[2023-12-22] MEDS: Acetaminophen 325 MG TABLET 650 MG PO ×3 (05:50→21:13)
--- NOTE | 2023-12-22 05:51 | PC.NURSE ---
pt reporting 10/10 pain to left leg, posterior left knee radiating down to left ankle. pt left foot extremely swollen however pt says that is normal for him and it will go down MD Hopson aware and verbal ordered prn tylenol and ibuprofen. administered per jul.
--- NOTE | 2023-12-22 07:07 | PC.NURSE ---
Home meds sent to pharmacy.
--- NOTE | 2023-12-22 08:59 | PC.NURSE ---
Pt sleeping at this time, breathing even and unlabored. Will get pt into hospital bed and encourage him to eat breakfast when he wakes up.
--- NOTE | 2023-12-22 09:52 | PC.NURSE ---
Pt alert and oriented, breathing even and unlabored. Reports pain has improved since Tyl/ Ibu. Ate his breakfast. PT and case management at bedside this morning.
--- NOTE | 2023-12-22 09:52 | MHC.CM.ED ---
Addendum entered by Carolyn Robles 12/22/23 12:25: [facility] extended a bed offer: pt accepted: facility to obtain [facility] auth - once auth obtained, pt will transfer via [facility] (to be arranged) Addendum entered by Carolyn Robles 12/22/23 11:36: PT recommends STR: Broad referrals made in surrounding geographical area : unsure of [facility] contracted facilities: will await offers. Original Note: Received consult for assessment of d/c needs: Met with pt to discuss d/c plans: Pt states he has been staying with a friend in [place] (his mailing address) and gave up an apartment in [place], [place] 12/13. He uses a motorcycle for transportation. He has no PCP and uses a walker he got from [facility] where he was d/c'd from on 12/18 after 5 days of admission. Pt states he cannot stay with his friend d/t his mobility limitations. Pt is hoping for STR until he is able to ambulate independently. PT eval pending. Pt is hoping to be functional by fall as he travels to [place] to spend the rizzo. ED CM to await PT eval for guidance with disposition.
--- NOTE | 2023-12-22 11:45 | PC.NURSE ---
Assume care of this patient at 1100, patient's sugar had not been checked since 0100 this am, POC now 351, provider to order metformin.
[2023-12-22 11:54] LABS: Glucose, Whole Blood 351 mg/dL (60-115)
--- NOTE | 2023-12-22 11:58 | PC.NURSE ---
Mohini requesting for pharmacy to be called to adjust 1st dose time on Metformin to start now, spoke to Crissy to adjust start time, will adjust.
[2023-12-22] MEDS: metFORMIN HCl 500 MG TABLET PO (12:24)
--- NOTE | 2023-12-22 14:09 | PC.NURSE ---
Patient asking about abx, no abx ordered at this time. Spoke to covering provider Mohini about need for abx, looks like patient received 1xdose of clindamyacin but no further ordered. Mohini to look into need for order. Patient to go to overflow, report called to Kelly MOTA, all questions answered.
[2023-12-22 17:03] LABS: Glucose, Whole Blood 367 mg/dL (60-115)
--- NOTE | 2023-12-22 19:23 | PC.NURSE ---
pt moved to OVER5 in front of nurses station d/t risk of elopement, pt wanting to leave to go smoke, refusing nicotine patch. camera in place
--- NOTE | 2023-12-22 20:10 | MHC.EDTECH ---
This tech took over care of patient at 1900,hourly rounds and vitals completed,patient was moved from bed 2,to bed 5, for safety patient was asking to go smoke a cigarette,this tech educated patient,and offered to ask the nurse for a nicotine patch,patient stated NO he didn't want patch. Patient is resting quietly at this time,call forte in reach
[2023-12-22] MEDS: metFORMIN HCl 1,000 MG TABLET 1000 MG PO (20:52)
[2023-12-22 21:03] LABS: Glucose, Whole Blood 381 mg/dL (60-115)
--- NOTE | 2023-12-22 21:06 | MHC.EDTECH ---
Blood sugar taken and is 381,Dona MOTA aware,patient given a snack a turkey sandwich and a diabetic jello.
--- NOTE | 2023-12-22 23:52 | MHC.EDTECH ---
Hourly rounds completed,patient is sleeping resp.rate wnl,call forte in reach
[2023-12-23] MEDS: Ibuprofen 600 MG TABLET PO ×3 (02:59→20:41)
[2023-12-23 03:41] VITALS: BP 169/99; PULSE 72; RESP 18; TEMP 36.6; O2SAT 98
--- NOTE | 2023-12-23 03:42 | MHC.EDTECH ---
Hourly rounds and vitals completed,emptied 900MLS of yellow urine from urinal,patient is resting quietly,call forte in reach
[2023-12-23] MEDS: Acetaminophen 325 MG TABLET 650 MG PO ×2 (05:47→17:39)
[2023-12-23 07:37] LABS: Glucose, Whole Blood 242 mg/dL (60-115)
[2023-12-23] MEDS: metFORMIN HCl 1,000 MG TABLET 1000 MG PO ×2 (09:32→20:39)
[2023-12-23] MEDS: Clindamycin HCL 300 MG CAPSULE PO ×4 (09:58→20:39)
[2023-12-23 11:24] VITALS: BP 165/89; PULSE 79; RESP 18; TEMP 36.2; O2SAT 97
[2023-12-23 11:53] LABS: Glucose, Whole Blood 314 mg/dL (60-115)
[2023-12-23 16:56] LABS: Glucose, Whole Blood 309 mg/dL (60-115)
[2023-12-23 22:39] VITALS: BP 169/96; PULSE 76; RESP 16; TEMP 36.9; O2SAT 98
--- NOTE | 2023-12-23 23:10 | PC.NURSE ---
resting quietly, with eyes closed,resp with ease, no s/s of acute distress at this time
--- NOTE | 2023-12-24 | MHC.EDTECH ---
THIS PCT ASSUMED CARE OF PATIENT AT 2300 ,PATIENT SLEEPING IN BED CALL PASTOR WITHIN PT REACH .
--- NOTE | 2023-12-24 02:46 | PC.NURSE ---
Pt attempted eloping from OV. VMT monitor called this nurse stating pt went out exit door to OV unit in w/c. Pt stated he was going outside to smoke a cigarette. Educated pt on hospital policy, offered him a smoking cessation alternative-pt refused. Pt is A&OX4 at this time. Primary RN notified, pt in front of nurses station. W/C no longer stationed at pts bedside. Will continue to closely monitor.
[2023-12-24] MEDS: Acetaminophen/Codeine 300-30mg Tablet 1 TAB PO (03:06)
[2023-12-24] MEDS: Ibuprofen 600 MG TABLET PO ×4 (03:06→20:25)
--- NOTE | 2023-12-24 03:19 | MHC.EDTECH ---
Pt attempting eloping overflow ,t staff called stating pt went out overflow exit doors ,when asked pt were he was going ,pt stated he was going to have a cigarette ,Pt was educated on hospital policy ,and was escorted back to his bed ,RN aware .
--- NOTE | 2023-12-24 04:09 | PC.NURSE ---
resting quietly on bed at this time, resp with ease, no s/s of any distress
--- NOTE | 2023-12-24 04:23 | MHC.EDTECH ---
Please do not leave w/c next to pt bed .
[2023-12-24 06:33] VITALS: BP 155/93; PULSE 64; RESP 16; TEMP 36.6; O2SAT 97
[2023-12-24 07:30] LABS: Glucose, Whole Blood 230 mg/dL (60-115)
[2023-12-24] MEDS: Acetaminophen 325 MG TABLET 650 MG PO ×2 (09:10→19:27)
[2023-12-24] MEDS: metFORMIN HCl 1,000 MG TABLET 1000 MG PO ×2 (09:11→20:25)
[2023-12-24] MEDS: Clindamycin HCL 300 MG CAPSULE PO ×4 (09:11→20:25)
[2023-12-24 11:40] LABS: Glucose, Whole Blood 311 mg/dL (60-115)
[2023-12-24 14:00] VITALS: BP 166/93; PULSE 91; RESP 20; TEMP 37.1; O2SAT 97
[2023-12-24 16:40] LABS: Glucose, Whole Blood 248 mg/dL (60-115)
[2023-12-24] MEDS: oxyCODONE HCl Immed Release 5 MG TABLET 10 MG PO (17:11)
--- NOTE | 2023-12-24 22:09 | PC.NURSE ---
pain remains to be 6 out of 10 after taking Tylenol and Ibuprofen. provider notified. one time order for Tramadol obtained. pt is now sleeping comfortably at this time. will administer when he wakes up if still needed.
[2023-12-25] MEDS: traMADoL HCL 50 MG TABLET PO (03:27)
[2023-12-25] MEDS: Acetaminophen 325 MG TABLET 650 MG PO (04:31)
[2023-12-25] MEDS: Ibuprofen 600 MG TABLET PO (04:31)
[2023-12-25 06:17] VITALS: BP 157/88; PULSE 81; RESP 18; O2SAT 97
[2023-12-25 08:01] LABS: Glucose, Whole Blood 244 mg/dL (60-115)
[2023-12-25] MEDS: metFORMIN HCl 1,000 MG TABLET 1000 MG PO (08:43)
[2023-12-25] MEDS: Clindamycin HCL 300 MG CAPSULE PO (08:43)
[2023-12-25 08:44] VITALS: BP 171/100; PULSE 99; RESP 18; TEMP 37.2; O2SAT 98
--- NOTE | 2023-12-25 08:44 | PC.NURSE ---
Pt. medicated per JUL. Requesting a dose of Oxycodone, AUGUSTUS Gaines notified. Awaiting response.
[2023-12-25] MEDS: oxyCODONE HCl Immed Release 5 MG TABLET 10 MG PO (08:55)
--- NOTE | 2023-12-25 10:00 | PC.NURSE ---
Reaching out to DONNIE Stoll for update that pt. is requesting. Awaiting response.
--- NOTE | 2023-12-25 11:27 | PC.NURSE ---
Per DONNIE Aparicio pt. going to [facility] today via [facility], 12:00 pickup time
--- NOTE | 2023-12-25 11:31 | MHC.CM.ED ---
Auth obtained for [facility]. [facility] SAUL booked for 12 noon. Booking ID number [id number]. Pt aware. RN and provider aware.
[2023-12-25 11:48] LABS: Glucose, Whole Blood 295 mg/dL (60-115)
--- NOTE | 2023-12-25 12:19 | PC.NURSE ---
Returned pt.'s home meds. to him at time of discharge- Prednisone, Cephalexin, Hydralazine, and Hydromorphone
[2023-12-25 12:39] VITALS: BP 171/100; PULSE 99; RESP 18; TEMP 37.2; O2SAT 98
--- NOTE | 2023-12-25 12:48 | PC.NURSE ---
Two attempts to call [id number] at [facility]. Call was hung up on twice on facility's side.
== END 2023-12-25 12:50 ==
PROVIDERS: Physician Assistant Medical; Emergency Provider Student in an Organized Health Care Education/Training Program; PCP Nurse Practitioner Family
DX: L03.116 Cellulitis of left lower limb (principal); M71.22 Synovial cyst of popliteal space [Baker], left knee; M79.89 Other specified soft tissue disorders; E11.65 Type 2 diabetes mellitus with hyperglycemia; I10 Essential (primary) hypertension; Z79.84 Long term (current) use of oral hypoglycemic drugs; Z79.899 Other long term (current) drug therapy
CPT/HCPCS: 36415; 76882; 80053; 80307; 82010; 82803; 82947; 83735; 85007; 85027; 96374; 97161; 99285

== ENCOUNTER 2023-12-26 09:09 | Outpatient (REF) | payer OTHER, SELFPAY | END 2023-12-26 09:10 | disposition home or self-care (01) | LOC: HO.HOSX 09:09 | PROVIDERS: Visit Provider Physician Assistant | DX: Z13.89 Encounter for screening for other disorder (principal) ==

== ENCOUNTER 2024-01-04 14:55 | Outpatient (AMB) | payer OTHER, SELFPAY ==
--- NOTE | 2024-01-04 15:02 | AM.OFFWIN_ITS ---
Intake Vital Signs 01/04/24 15:08 Height 6 ft 2 in Weight 210 lb BMI 27.0 BP 140/100 H Blood Pressure Location Rt brachial Position Sitting Pulse 120 H Pulse Source Pulse Oximeter Pulse Oximetry (%) 98 Oxygen Delivery Method Room Air Intake Visit Reasons: EP- wants blood sugar checked Intake Note: Patient here for left leg pain. pt would also like to have his suagrs checked. Patient Tobacco Use Status: Former Tobacco user Allergies hydrochlorothiazide Allergy (Unknown, Verified 01/04/24 15:06) Unknown doxazosin [From Cardura] Adverse Reaction (Verified 01/04/24 15:06) Irritable Do you need a note to return to daycare/school/sports/work: No HPI HPI Comments History of Present Illness Details Patient is a 53-year-old male who has had multiple ED visits to both [facility] and [facility] to treat a left lower extremity Parry's cyst, he also states he has new diagnosis of hypertension and diabetes. He came to the walk-in today requesting we check his blood sugar. He denies any changes in his vision, any excessive thirst or urination. He denies any fevers. He states in the last 30 days, he has been evaluated at both hospitals, had his Parry's cyst drained at [facility] approximately 3 weeks ago, he has been treated for cellulitis with Keflex. He tells me he was on a prednisone taper (he thinks for the knee/cyst swelling) and he took his last prednisone yesterday. He states he still having severe left leg pain (behind his knee) and was given Dilaudid but he is out of this medication. He tells me he is overwhelmed with all of the medical issues he has been dealing with recently and is given him a lot of anxiety. Patient states he was placed on metformin at [facility] but then when he went to [facility], they placed him on injectable insulin but he was not given a thorough education on how to inject himself so he is uncomfortable doing it and went back to taking the metformin. He took his last one at 04:00 today. [facility] Medical History No pertinent family history HSV-1 (herpes simplex virus 1) infection Surgical History H/O right wrist surgery Social History Housing: House Alcohol intake: never Patient Tobacco Use Status: Former Tobacco user Tobacco use type: Cigarette Cigarettes Per Day: 5 Years Smoked: 35 e-Cigarette/Vaping Use: Never Used service: No Current occupational status: disabled Cognitive needs: No Hearing needs: No Vision needs: No Review of Systems Const All systems reviewed & are unremarkable except as noted in HPI and below Physical Exam Vital Signs: Last Vital Signs Pulse 120 H 01/04/24 15:08 BP 140/100 H 01/04/24 15:08 Pulse Ox 98 01/04/24 15:08 Oxygen Delivery Method Room Air 01/04/24 15:08 BMI result Body Mass Index 27.0 Const General: cooperative, comfortable, well developed, anxious and poor hygiene Nutritional Appearance: thin Orientation/consciousness: patient oriented x3 Limitations: ambulation with walker HEENT Head: Yes normal to inspection Ears: hearing grossly normal bilaterally General nose exam: Normal external nose present Face and sinus: Yes normal facial exam Eyes General: appearance normal, both eyes and all related structures Neck Neck: Yes normal visual inspection and Yes full ROM Resp Effort & Inspection: normal respiratory effort and able to speak in complete sentences Auscultation: clear to auscultation bilaterally Cardio Rate: regular rate Rhythm: regular rhythm Heart sounds: normal S1 and S2 GI Inspection: Yes normal to inspection Palpation (GI): Soft to palpation and nontender Skin General skin exam: no rashes or lesions noted Neuro General: patient oriented x3 Extrem General: Yes normal to inspection Left lower extremity: knee Details: normal to inspection, tenderness (Posterior), normal ROM and knee ligament exam normal; no swelling, no abrasions, no lacerations, no ecchymosis, no deformity and no unusual warmth Results AMB Random Glucose (hemocue) AMB Random Glucose (hemocue) 405 mg/dL Last Edit by IMTIAZ Barboza on 01/04/24 15:18 Results Reviewed Results Reviewed: Laboratory Last Values Random Glu (Clinic) 405 mg/dL 01/04/24 15:18 Assessment & Plan Assessment & Plan (1) Acute hyperglycemia: Code(s): R73.9 - Hyperglycemia, unspecified Plan: Patient is ambulating by putting his left foot on a walker and hopping along on his right foot, this is clearly unsafe. We wheeled him via wheelchair to his vehicle so he could drive home and have his friend to bring him to the emergency department. He is tachycardic, diaphoretic and his blood sugar is 405. His point of care could be elevated because of his recent prednisone use but also he probably needs more than just metformin for treating his diabetes. He also needs diabetic education on how to inject if he is going to be placed on insuli n. Called [facility] ED with expect. (2) Sinus tachycardia: Code(s): R00.0 - Tachycardia, unspecified Plan: See above Plan See above Orders: Orders AMB Random Glucose (hemocue) Today Z13.9 - Encounter for screening, unspecified Coding Level of Care Code Est Pt Level 5 (24335) Diagnoses Acute hyperglycemia R73.9 Sinus tachycardia R00.0
[2024-01-04 15:08] VITALS: BP 140/100; PULSE 120; O2SAT 98; BMI 27.0
== END 2024-01-04 15:57 | disposition home or self-care (01) ==
PROVIDERS: Visit Provider Physician Assistant
DX: R73.9 Hyperglycemia, unspecified (principal); R00.0 Tachycardia, unspecified
CPT/HCPCS: 82948; 99215

== ENCOUNTER 2024-01-04 19:50 | Emergency (ER) | payer OTHER, SELFPAY ==
[2024-01-04 21:00] VITALS: BP 153/108; PULSE 103; RESP 18; TEMP 36.8; O2SAT 100; BMI 27.0
[2024-01-04 21:15] LABS: Glucose, Whole Blood 373 mg/dL (60-115)
[2024-01-04 21:57] LABS: Hematocrit 42.9 % (42.0-52.0); Hemoglobin 14.8 g/dl (14.0-18.0); Mean Corpuscular HGB Conc 34.5 g/dl (31.0-36.0); Mean Corpuscular Hemoglobin 30.8 pg (27.0-33.0); Mean Corpuscular Volume 89.2 fL (80.0-98.0); Mean Platelet Volume 9.5 fL (9.4-12.4); Platelet Count 208 X10*3/uL (160-400); Red Blood Count 4.81 X10*6/uL (4.60-5.80); Red Cell Distribution Width 13.1 % (11.0-16.0); White Blood Count 13.4 X10*3/uL (4.8-10.8)
[2024-01-04 22:10] LABS: Lactic Acid 1.5 mmol/L (0.5-2.0)
[2024-01-04 22:24] LABS: Alanine Aminotransferase 27 U/L (0-40); Albumin Level 3.7 g/dL (3.5-5.0); Alkaline Phosphatase 75 U/L (39-117); Anion Gap 14 (12-20); Aspartate Amino Transferase 12 U/L (5-37); Bilirubin Total 0.4 mg/dL (0.0-1.0); Blood Urea Nitrogen 26 mg/dL (9-16); Calcium 9.2 mg/dL (8.4-10.2); Carbon Dioxide 26 mmol/L (22-29); Chloride 99 mmol/L (96-108); Creatinine Clr Calc Pharmacy 118.1; Estimated Glomerular Filt Rate > 60; Glucose Random 356 mg/dL (60-115); Potassium 4.1 mmol/L (3.3-5.1); Sodium 135 mmol/L (135-145); Total Protein 7.1 g/dL (6.5-8.0)
--- NOTE | 2024-01-05 01:17 | ED_ITS ---
HPI - General Adult General Chief complaint: General Medical Stated complaint: elevated blood sugar, left lower leg pain Time Seen by Provider: 01/05/24 01:17 Source: patient Mode of arrival: ambulatory Limitations: no limitations History of Present Illness ED Provider: christel FALCON narrative: Patient diabetic noncompliant with medication homeless was here discharged after 3 days of stay in the ER to [address] [place] [address] within 3 hours of reaching [facility] patient did not like the place in left went to [facility] yesterday did not see the ED provider has insulin and other medications at home not taking on time comes here for blood sugar in 400 range earlier blood sugar 373 on arrival patient also does have a Parry's cyst in the left knee complaining of chronic pain in left leg Related Data Home Medications ?Medication ?Instructions ?Recorded ?Confirmed cephalexin 500 mg capsule 500 mg PO QID 12/22/23 12/22/23 hydralazine 10 mg tablet 10 mg PO BID 12/22/23 12/22/23 hydromorphone 2 mg tablet 2 mg PO Q4-6H PRN 01/04/24 Previous Rx's ?Medication ?Instructions ?Recorded blood sugar diagnostic (Freestyle #100 ea 12/09/23 [employer] Test Strips) blood-glucose meter #1 ea 12/09/23 lancets 28 gauge (FreeStyle #100 ea 12/09/23 Lancets) metformin 500 mg tablet 500 mg PO BID #60 tabs 12/09/23 clindamycin HCl 300 mg capsule 300 mg PO QID 4 days #16 caps 12/25/23 gabapentin 300 mg capsule 300 mg PO BEDTIME #30 caps 01/05/24 Allergies Allergy/AdvReac Type Severity Reaction Status Date / Time hydrochlorothiazide Allergy Unknown Unknown Verified 01/04/24 21:09 doxazosin [From Cardura] AdvReac Irritable Verified 01/04/24 21:09 Review of Systems 2 Review of Systems: Yes all other systems are reviewed and are negative PMFSH Past Medical History Medical History No pertinent family history HSV-1 (herpes simplex virus 1) infection Surgical History H/O right wrist surgery Social History Social History Housing: House Alcohol intake: never Patient Tobacco Use Status: Former Tobacco user Tobacco use type: Cigarette Cigarettes Per Day: 5 Years Smoked: 35 Smoked in Last 30 Days: Yes e-Cigarette/Vaping Use: Never Used Use of substances other than those prescribed or required for medical reasons: No Advance Directives: Yes Advance Directives Information Provided: No Advance Directives on File: No Do you have a plan to hurt others: No Plan service: No Current occupational status: disabled Cognitive needs: No Hearing needs: No Vision needs: No Physical Exam ED Vital Signs: Vital Signs - 24 hr 01/04/24 21:00 01/05/24 02:04 Temperature 98.2 F 98.2 F Pulse Rate 103 H 103 H Respiratory Rate 18 18 Blood Pressure 153/108 H 153/108 H Pulse Oximetry 100 100 Oxygen Delivery Method Room Air Room Air BMI result Body Mass Index 27.0 Appearance: Alert. Oriented X3. No acute distress. Eyes: No pallor or icterus ENT: Pharynx normal. Oral Mucosa moist Neck: Normal inspection. Neck supple. CVS: Normal heart rate and rhythm. Pulses normal. Respiratory: No respiratory distress. Equal air entry bilateral, no wheezing/rales/rhonchi Abdomen: Soft and nontender. Bowel sounds are present, no mass palpable, no CVA tenderness Skin: Skin warm and dry. Normal skin color. Normal skin turgor. Extremities: No lower extremity edema. No calf tenderness lipomatous lesions left thigh and left leg no skin discoloration no objective tenderness Neuro: Oriented X 3. No motor deficit. No sensory deficit.No cerebellar signs , cranial nerves II-XII intact Medications Administered Discontinued Medications Generic Name Dose Route Start Last Admin Trade Name Jeovannyq PRN Reason Stop Dose Admin Gabapentin 300 mg 01/05/24 01:34 01/05/24 01:37 Gabapentin 300 Mg Capsule PO 01/05/24 01:35 300 mg ONCE ONE Administration Hydralazine HCl 10 mg 01/05/24 01:24 01/05/24 01:35 Hydralazine Hcl 10 Mg Tablet PO 01/05/24 01:25 Not Given ONCE ONE Protocol Insulin Glargine 20 unit 01/05/24 01:24 01/05/24 01:37 Insulin Glargine,Hum.Rec.Anlog 100 Unit/Ml 10 Ml Vial SUBCUT 01/05/24 01:25 20 unit ONCE ONE Administration Insulin Human Lispro 10 unit 01/05/24 01:24 01/05/24 01:38 Insulin Lispro 100 Unit/Ml 3 Ml Vial SUBCUT 01/05/24 01:25 10 unit ONCE ONE Administration Medical Decision Making Medical Decision Making [facility] Narrative: Patient is noncompliant with his medications does have a place to live does not want to go to senior living will be placed last time does have insulin and metformin at home not taking as instructed asking for pain medication on arrival for the lipomatous lesions in the left leg which is noninfected will discharge patient home on gabapentin dose of insulin was given in the ER patient advised to follow with PCP Lab Data [facility] Lab Attestation statement: I reviewed the patient's lab results. 01/04/24 21:49 01/04/24 21:49 Labs: Lab Results 01/04/24 01/04/24 Range/Units 21:12 21:49 WBC 13.4 H (4.8-10.8) X10*3/uL RBC 4.81 (4.60-5.80) X10*6/uL Hgb 14.8 (14.0-18.0) g/dl Hct 42.9 (42.0-52.0) % MCV 89.2 (80.0-98.0) fL MCH 30.8 (27.0-33.0) pg MCHC 34.5 (31.0-36.0) g/dl RDW 13.1 (11.0-16.0) % Plt Count 208 D (160-400) X10*3/uL MPV 9.5 (9.4-12.4) fL Absolute Nucleated RBC 0.000 (0.0-0.012) X10*3/uL Nucleated RBC % (auto) 0.0 (0.0-0.2) /100WBC Sodium 135 (135-145) mmol/L Potassium 4.1 (3.3-5.1) mmol/L Chloride 99 (96-108) mmol/L Carbon Dioxide 26 (22-29) mmol/L Anion Gap 14 (12-20) BUN 26 H (9-16) mg/dL Creatinine 0.86 (0.5-1.4) mg/dL Estim Creat Clear Calc 118.1 Estimated GFR > 60 POC Glucose 373 H* (60-115) mg/dL Random Glucose 356 H* (60-115) mg/dL Lactic Acid 1.5 (0.5-2.0) mmol/L Calcium 9.2 (8.4-10.2) mg/dL Total Bilirubin 0.4 (0.0-1.0) mg/dL AST 12 (5-37) U/L ALT 27 (0-40) U/L Alkaline Phosphatase 75 (39-117) U/L Total Protein 7.1 (6.5-8.0) g/dL Albumin 3.7 (3.5-5.0) g/dL Discharge Plan Discharge Clinical Impression: Diabetes mellitus with hyperglycemia, Chronic pain Patient Disposition: Home, Self-Care Instructions: Chronic Pain (ED), Diabetic Hyperglycemia (ED) Additional Instructions: Take your insulin and metformin as prescribed Drink plenty of fluids Start taking gabapentin for chronic pain Follow with your PCP Prescriptions: New gabapentin 300 mg capsule 300 mg PO BEDTIME Qty: 30 0RF No Action hydralazine 10 mg tablet 10 mg PO BID cephalexin 500 mg capsule 500 mg PO QID clindamycin HCl 300 mg capsule 300 mg PO QID 4 Days Qty: 16 0RF metformin 500 mg tablet 500 mg PO BID Qty: 60 0RF (DME) blood-glucose meter Kit See Rx Instructions .Route Qty: 1 0RF Rx Instructions: As directed (DME) lancets [FreeStyle Lancets] 28 gauge misc See Rx Instructions .Route Qty: 100 0RF Rx Instructions: As directed (DME) Freestyle [employer] Test Strips Strip See Rx Instructions .Route Qty: 100 0RF Rx Instructions: As directed hydromorphone 2 mg tablet 2 mg PO Q4-6H PRN Interventions: ED Discharge Assessment Last Done: 01/05/24 02:04 Discharge Date/Time: 01/05/24 02:05 Print Language: Kiswahili
[2024-01-05] MEDS: Insulin Glargine,Hum.rec.anlog 100 UNIT/ML 10 ML VIAL 20 UNIT SUBCUT (01:37)
[2024-01-05] MEDS: Gabapentin 300 MG CAPSULE PO (01:37)
[2024-01-05] MEDS: Insulin Lispro 100 UNIT/ML 3 ML VIAL 10 UNIT SUBCUT (01:38)
[2024-01-05 02:04] VITALS: BP 153/108; PULSE 103; RESP 18; TEMP 36.8; O2SAT 100
== END 2024-01-05 02:05 | disposition home or self-care (01) ==
PROVIDERS: Emergency Provider Internal Medicine
DX: E11.65 Type 2 diabetes mellitus with hyperglycemia (principal); G89.29 Other chronic pain; M79.605 Pain in left leg; Z91.148 Patient's other noncompliance with medication regimen for other reason; Z59.00 Homelessness unspecified; M71.22 Synovial cyst of popliteal space [Baker], left knee; Z87.891 Personal history of nicotine dependence; Z79.84 Long term (current) use of oral hypoglycemic drugs; Z79.899 Other long term (current) drug therapy
CPT/HCPCS: 36415; 80053; 82947; 83605; 85027; 87040; 99283; 99284

== ENCOUNTER 2024-01-12 12:11 | Outpatient (AMB) | payer OTHER, SELFPAY ==
--- NOTE | 2024-01-12 12:16 | A.OFFPC_ITS ---
Vital Signs 01/12/24 12:31 Height 6 ft 2 in Weight 185 lb 6 oz BMI 23.8 BMI Reason not done Patient refused/unable BP 134/84 Blood Pressure Location Lt brachial Position Sitting Respiration 16 Pulse 107 H Pulse Source Pulse Oximeter Temp 98.7 F Temp Source Oral Pulse Oximetry (%) 95 Oxygen Delivery Method Room Air Intake Visit Reasons: re establish care leg pain Intake Note: patient here to re-establish care and leg pay. Flare Stitcher Required: No Allergies doxazosin [From Cardura] Adverse Reaction (Verified 01/12/24 12:36) Irritable flomax Adverse Reaction (Mild, Uncoded 01/12/24 12:36) Hypertension Medication List - Last Reconciled 01/12/24 by Brooke Vidal CNP blood sugar diagnostic (Freestyle [employer] Test Strips) As directed blood-glucose meter As directed insulin glargine (Lantus Solostar U-100 Insulin) units subcut insulin lispro (Humalog KwikPen (U-100) Insulin) subcut lancets (FreeStyle Lancets) As directed Tobacco use date assessed: 01/12/24 Dental Screening Dental Screen Date: 01/12/24 Did you have a dental visit in the last 12 months?: Yes Did you have a dental problem in the last 6 months where you did not have access to dental care?: No Was dental information given to patient?: Patient has dentist HPI HPI Comments History of Present Illness Details New patient Prior PCP:?Gee Pleitez NP Last office visit/CPE: About 2 years Acute issue(s): Hypertension -He was on hydralazine but stopped takin g the medication Diabetes -Currently on Lantus and lispro He was recently on hydralazine 10 mg twice daily and metformin 500 mg twice daily. He notes that he was told to stop taking Metformin due to GI discomfort. He wants to go back on metformin and stop taking insulin. He has been taking Lantus 20 units at bedtime and Lispro per s/s. He stopped taking Hydralazine because he believes his blood pressure is controlled when is blood sugar is controlled. He notes that blood pressure medication is not good for me. He was hospitalized for a few days at [facility] for Cellulitis of the left lower extremity and left known parry's cyst. He notes that he continues to experience pain and swelling of his left calf which continues to improve. He notes that he has been taking aspirin 81mg (3 tabs), tumeric, and black pepper with significant relief of his pain. He notes that the Parry's cyst is ruptured. He has been using a walker for ambulation PMHx: HTN, Diabetes SurgHx: Right wrist repair, oral surgery FHx: Dad: diabetes SocHx: Former smoker; smoked less than half a pack x 25 years; quit 12 years ago. He does not drink alcohol. No recreational drugs He was seen by this provider on 11/04/2022 but refused to establish care or to have medical intervention [facility] Medical History No pertinent family history HSV-1 (herpes simplex virus 1) infection Surgical History H/O right wrist surgery Social History Housing: House Alcohol intake: never Patient Tobacco Use Status: Former Tobacco user Tobacco use type: Cigarette Cigarettes Per Day: 5 Years Smoked: 35 e-Cigarette/Vaping Use: Never Used service: No Current occupational status: disabled Cognitive needs: No Hearing needs: No Vision needs: No Questionnaire PHQ-9 Over the last 2 weeks, how often have you been bothered by any of the following problems? 1. Little interest or pleasure in doing things: nearly every day 2. Feeling down, depressed, or hopeless: not at all 3. Trouble falling or staying asleep, or sleeping too much: several days 4. Feeling tired or having little energy: several days 5. Poor appetite or overeating: not at all 6. Feeling bad about yourself - or that you are a failure or have let yourself or your family down: not at all 7. Trouble concentrating on things, such as reading the newspaper or watching television: nearly every day 8. Moving or speaking so slowly that other people could have noticed. Or the opposite - being so fidgety or restless that you have been moving around a lot more than usual: not at all 9. Thoughts that you would be better off or of hurting yourself in some way: not at all Total score: 8 Depression Screening Interpretation: Positive Depression Screening Done: Yes 05562 - PHQ-9 Billing: Yes Source: Developed by Drs. Yogi Braga, Carri Jade, Amado Pathak and colleagues, with an educational bhakti from [employer]. Thrive Questionnaire Date Thrive assessed: 11/04/22 AUDIT C Alcohol Use Questionnaire (AUDIT-C) 1. How often do you have a drink containing alcohol?: Never Total Score: 0 CARLOS-7 AMB Questionnaire CARLOS-7 Date CARLOS - 7 assessed: 01/12/24 Feeling nervous, anxious, or on edge: 3 = Nearly every day Not being able to stop or control worryin = Not at all Worrying too much about different things: 0 = Not at all Trouble relaxin = Not at all Being so restless that it is hard to sit still: 0 = Not at all Becoming easily annoyed or irritable: 0 = Not at all Feeling afraid as if something awful might happen: 0 = Not at all Total CARLOS-7 score (0-4 normal; 5-9 mild; 10-14 moderate; 15-21 severe): 3 Source: Developed by Drs. Yogi Braga, Carri Jade, Amado Pathak and colleagues, with an educational bhakti from [employer]. CARLOS-7 Assessment Billing CARLOS-7 Assessment Tool: CARLOS-7 Assessment 43732 Review of Systems Const Details: Const Denies chills, Denies fatigue, Denies fever(s), Denies headache(s) and Denies weakness ENT Denies dizziness and Denies headache(s) Card Denies chest pain, Denies lightheadedness, Denies dyspnea and Denies other (Palpitations) Resp Denies cough, Denies dyspnea, Denies wheezing and Denies other ( shortness of breath) GI Denies abdominal pain, Denies melena, Denies hematochezia, Denies change in bowel habits, Denies dyspepsia and Denies nausea Denies hematuria and Denies dysuria Musc Denies numbness and Denies tingling Skin/Breast Denies rash, Denies unusual bruising and Denies wounds Neuro Denies abnormal gait, Denies dizziness, Denies headache(s), Denies memory loss, Denies numbness, Denies Sensory deficit (Neuro), Denies tingling and Denies weakness Psych Denies anxiety, Denies depression, Denies memory loss Endo Denies cold intolerance, Denies fatigue, Denies heat intolerance, Denies polydipsia and Denies polyuria Aller/Immun Denies wheezing Physical exam (Primary Care) Vital Signs: Last Vital Signs Temp 98.7 F 01/12/24 12:31 Pulse 107 H 01/12/24 12:31 Resp 16 01/12/24 12:31 Pulse Ox 95 01/12/24 12:31 Oxygen Delivery Method Room Air 01/12/24 12:31 BMI result Body Mass Index 23.8 Tobacco/Smoking Status: Tobacco use Status Tobacco use date assessed 01/12/24 01/12/24 12:28 Patient Tobacco Use Status Former Tobacco user 01/12/24 12:18 Tobacco use type Cigarette 01/12/24 12:18 e-Cigarette/Vaping Use Never Used 01/12/24 12:18 PHQ-9: PHQ-9 Score PHQ-9: Total score 8 01/12/24 12:32 Depression Screening Interpretation: Positive Thrive Assessment: Date of Thrive Assessment Date Thrive assessed 11/04/22 01/12/24 12:18 Const Other: General: no acute distress and well developed Nutritional Appearance: well nourished Orientation/consciousness: patient oriented x3 HENMT Head: Yes normocephalic and Yes atraumatic Eyes General: appearance normal, both eyes and all related structures Pupils: Equal, round and reactive pupils present EOM: EOMs intact bilaterally Resp Effort & Inspection: normal respiratory effort Auscultation: clear to auscultation bilaterally Cardio Rate: regular rate Rhythm: regular rhythm Heart sounds: S1 normal heart sound present, S2 normal heart sound present, no gallops, no murmurs and no rubs GI Palpation (GI): No Abdominal aortic bruit present, Soft to palpation, nontender, No hepatosplenomegaly present and No Rebound tenderness present Auscultation: normal bowel sounds General: Yes no CVA tenderness Back/Spine/Pelvis Back: no CVA tenderness Cervical Spine: cervical ROM normal and No Cervical spine tenderness Thoracic/Lumbar Spine: thoraco-lumbar ROM normal, No pain with thoraco-lumbar ROM, No thoracic spinal tenderness and No lumbar spinal tenderness Extrem General: Yes normal to inspection Significant edema and tenderness of the left posterior leg Skin General: warm and dry. Normal skin color. Normal skin turgor Lesions: no lesions Rashes: no rashes Trauma: no lacerations or abrasions Wounds: no wounds Nails: normal Neuro General: patient oriented x3, gait unsteady and no focal neuro deficit Cranial nerves: Yes Equal, round and reactive pupils present Cognition (Neuro): normal cognition Gait exam (Neuro): Unsteady gait due to left lower leg edema and pain Sensory Exam: No Sensory deficit (Neuro) Psych Appearance: grossly normal Affect: normal affect Attitude: cooperative Thought process: Normal thought process present Results AMB Hemoglobin A1c AMB Hemoglobin A1c 10.9 % Last Edit by Camila Malik on 01/12/24 13:33 Assessment and Plan Assessment & Plan (1) Hypertension: Code(s): I10 - Essential (primary) hypertension Plan: Blood pressure is 134/84, above goal of less than 130/80 Instructed on importance of controlling his blood pressure with comorbidities such as diabetes. He is willing to take lisinopril. Will start lisinopril 10 mg daily. Advised to take as prescribed. Instructed on risks, benefits, and potential adverse reactions of the medication Low-sodium diet encouraged Advised to get lab work done before his next visit Follow-up in 1 month for hypertension and labs review or sooner with symptoms or concerns Verbalized understanding and agreed with the treatment plan (2) Synovial cyst of popliteal space [Parry], left knee: Code(s): M71.22 - Synovial cyst of popliteal space [Parry], left knee Plan: Significant edema and tenderness of the left posterior leg likely secondary to ruptured Parry's cyst May take Tylenol ibuprofen for pain or discomfort Warm/cool compresses encouraged Frequent elevation of his left lower extremity encouraged to improve swelling Referred to [facility] orth[facility]ics Continue to use walker for ambulation Follow-up with worsening or new signs and symptoms Verbalized understanding and agreed with treatment plan (3) Diabetes: Code(s): E11.9 - Type 2 diabetes mellitus without complications Plan: A1c today is 10.9%, above goal of less than 7.0% He will start taking metformin 500 mg twice daily Encouraged to continue to take Lantus 20 units every night Lispro discontinue at this time ADA diet and routine exercise encouraged Will recheck A1c in 3 months Follow-up with symptoms or concerns or adverse reactions of the medications Verbalized understanding and agreed with the treatment plan Orders: Orders TSH reflex Free T4 Today Z00.00 - Encounter for general adult medical examination without abnormal findings PSA, Ultra Sensitive Today Z00.00 - Encounter for general adult medical examination without abnormal findings UA CC w/rflx Micro + Cult Today Z00.00 - Encounter for general adult medical examination without abnormal findings Complete Blood Count Auto Diff Today Z00.00 - Encounter for general adult medical examination without abnormal findings Lipid Panel Today Z00.00 - Encounter for general adult medical examination without abnormal findings Microalbumin, Random (w Creat) Today Z00.00 - Encounter for general adult medical examination without abnormal findings AMB Hemoglobin A1c Today Z13.9 - Encounter for screening, unspecified Referrals Orthopedics Referral M71.22 - Synovial cyst of popliteal space [Parry], left knee Medications: New lisinopril 10 mg PO DAILY 30 days 30 tabs 3RF Changed From metformin 500 mg PO BID 60 tabs 0RF To metformin 500 mg PO BID 30 days 60 tabs 3RF Coding Level of Care Code Est Pt Level 4 (22170) Complex EM visit Add On G2211 Diagnoses Hypertension I10 Synovial cyst of popliteal space [Parry], left knee M71.22 Diabetes E11.9 Additional Codes CARLOS-7 Assessment Billing - CARLOS-7 Assessment Tool: CARLOS-7 Assessment 20876 ([id number])
[2024-01-12 12:31] VITALS: BP 134/84; PULSE 107; RESP 16; TEMP 37.1; O2SAT 95; BMI 23.8
== END 2024-01-12 13:52 | disposition home or self-care (01) ==
PROVIDERS: Visit Provider Nurse Practitioner Family
DX: I10 Essential (primary) hypertension (principal); M71.22 Synovial cyst of popliteal space [Baker], left knee; E11.9 Type 2 diabetes mellitus without complications
CPT/HCPCS: 83036; 99214; G2211

== ENCOUNTER 2024-02-03 06:33 | Outpatient (REF) | payer OTHER, SELFPAY ==
[2024-02-03 11:21] LABS: MANUAL DIFF FLAG NO
[2024-02-03 11:30] LABS: Basophils Percent Auto 0.4 % (0-2); Eosinophils Absolute Auto 0.2 X10*3/uL (0.0-0.4); Eosinophils Percent Auto 1.9 % (0-4); Hematocrit 40.9 % (42.0-52.0); Hemoglobin 13.5 g/dl (14.0-18.0); Imm Gran Abs Auto 0.06 X10*3/uL (0.00-0.03); Imm Gran Pct Auto 0.6 % (0.0-0.4); Lymphocytes Absolute Auto 2.1 X10*3/uL (1.2-4.9); Lymphocytes Percent Auto 19.9 % (20-40); Mean Corpuscular Hemoglobin 30.5 pg (27.0-33.0); Mean Corpuscular Volume 92.3 fL (80.0-98.0); Mean Platelet Volume 9.2 fL (9.4-12.4); Monocytes Absolute Auto 0.6 X10*3/uL (0.1-1.2); Neutrophils Absolute Auto 7.4 x10*3/uL (2.0-8.3); Neutrophils Percent Auto 71.2 % (45-73); Platelet Count 269 X10*3/uL (160-400); Red Blood Count 4.43 X10*6/uL (4.60-5.80); Red Cell Distribution Width 13.6 % (11.0-16.0); White Blood Count 10.3 X10*3/uL (4.8-10.8)
[2024-02-03 11:42] LABS: Cholesterol 175 mg/dL (<200); HDL Cholesterol 33 mg/dL (>40); LDL Cholesterol Calculated 123 mg/dL (<100); Triglycerides 99 mg/dL (<150)
[2024-02-03 12:04] LABS: TSH reflex Free T4 2.91 uIU/mL (0.32-4.0)
== END 2024-02-03 06:34 | disposition home or self-care (01) ==
LOC: HO.HMGCLDS 06:33
PROVIDERS: PCP Nurse Practitioner Family; Visit Provider Nurse Practitioner Family
DX: Z00.00 Encounter for general adult medical examination without abnormal findings (principal); Z12.5 Encounter for screening for malignant neoplasm of prostate
CPT/HCPCS: 36415; 80061; 84153; 84443; 85025

== ENCOUNTER 2024-02-05 04:00 | Outpatient (REF) | payer OTHER, SELFPAY ==
[2024-02-05 10:11] LABS: Appearance Urine Clear; Color Urine Yellow; Glucose Urine UA Negative (Negative); Leukocyte Esterase Urine Negative (Negative); Nitrite Urine Negative (Negative); PH 6.5 (5.0-9.0); Urine Blood Negative (Negative); Urine Ketones Negative (Negative); Urine Protein Negative (Neg-Trace)
[2024-02-05 11:06] LABS: Creatinine Urine 42.37 mg/dL; Microalbumin Urine < 5.0 mg/L
== END 2024-02-05 04:01 | disposition home or self-care (01) ==
LOC: HO.HMGCLNP 04:00
PROVIDERS: Visit Provider Nurse Practitioner Family
DX: Z13.89 Encounter for screening for other disorder (principal)
CPT/HCPCS: 81003; 82043; 82570

== ENCOUNTER 2024-02-05 14:01 | Outpatient (REF) | payer OTHER, SELFPAY ==
--- NOTE | ~2024-02-05 | XR_ITS ---
EXAMINATION: XR KNEE, RIGHT CLINICAL INFORMATION: M25.561 - Pain in right knee COMPARISON: None available. TECHNIQUE: AP view of the right knee. FINDINGS: Normal bone mineralization. No acute fracture, dislocation, or suspicious bone lesion. Mild to moderate medial compartment joint space narrowing. Preservation of the lateral compartment. Normal alignment. Soft tissues demonstrate mild vascular calcifications. XR/XR knee RT 1V IMPRESSION: 1. No acute findings right knee. 2. Mild to moderate medial compartmental osteoarthrosis. Electronically signed by: Ritesh Doherty MD 04/15/2024 09:57 AM CELESTE
--- NOTE | ~2024-02-05 | XR_ITS ---
EXAMINATION: XR KNEE, LEFT CLINICAL INFORMATION: M25.562 - Pain in left knee COMPARISON: None available. TECHNIQUE: Four views of the left knee. FINDINGS: Normal bone mineralization. No acute fracture, dislocation, or suspicious bone lesion. Mild medial and lateral compartment joint space narrowing, with minimal marginal osteophytic spurs and mild spurring of the tibial spines. Normal patellofemoral alignment. Mild narrowing of the lateral facet joint space. No evidence of significant joint effusion. No soft tissue abnormality aside from mild vascular calcification. XR/XR knee LT 3V IMPRESSION: 1. No acute findings left knee. 2. Mild tricompartmental osteoarthrosis. No joint effusion. Electronically signed by: Ritesh Doherty MD 04/15/2024 09:59 AM CELESTE
== END 2024-02-05 14:02 | disposition home or self-care (01) ==
LOC: HO.XRAY 14:01
PROVIDERS: PCP Nurse Practitioner Family; Visit Provider Physician Assistant
DX: M25.561 Pain in right knee (principal); M25.562 Pain in left knee
CPT/HCPCS: 73560; 73562; 81003; 82043; 82570; 99202

== ENCOUNTER → 2024-02-05 14:16 | Outpatient (BNV) | payer OTHER, SELFPAY | PROVIDERS: PCP Nurse Practitioner Family; Visit Provider Radiology Diagnostic Radiology | DX: M25.561 Pain in right knee (principal); M25.562 Pain in left knee | CPT/HCPCS: 73560; 73562 ==

== ENCOUNTER 2024-02-05 14:46 | Outpatient (AMB) | payer OTHER, SELFPAY ==
--- NOTE | 2024-02-05 15:09 | A.OFFVIS_ITS ---
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 Patient reports on December 02, 2023 his left knee was acting up and he felt a burning sensation. He was seen at [facility] for a ruptured parry cyst and was given IV antibiotics as well as a knee aspiration. He continues to have ongoing swelling that he was told from the toxins from the bakers cyst. His pain is located at the anterior aspect of knee. Limited ROM. He mentions recently being diagnosed as a diabetic. He finds some relief with CBD for his neuropathy. Allergies doxazosin [From Cardura] Adverse Reaction (Verified 02/05/24 15:40) Irritable flomax Adverse Reaction (Mild, Uncoded 02/05/24 15:40) Hypertension Medication List - Last Reconciled 02/05/24 by Jayjay Kramer PA-C blood sugar diagnostic (Freestyle [employer] Test Strips) As directed blood sugar diagnostic (FreeStyle Lite Strips) check blood sugar 2-3 times per day as directed blood-glucose meter As directed insulin glargine (Lantus Solostar U-100 Insulin) units subcut lancets (FreeStyle Lancets) As directed lisinopril 10 mg PO DAILY 30 days metformin 500 mg PO BID 30 days HPI HPI OPERATIONS CONTROLLER- left knee pain, parry cyst: Details: 53-year-old male who presents to the office today for an evaluation of left knee pain. He reports he noticed a lump on his knee that had a burning sensation, 12/02/23. He was seen at [facility] where he was prescribed antibiotics which did not provide him any relief. He currently states he has swelling, limited ROM and pain at the anterior aspect of his knee. He also experiences pain with weight bearing. He uses CBD to help with his neuropathy. He has a history of diabetes. [facility] Medical History (Updated 01/12/24 @ 13:21 by Brooke Vidal CNP) No pertinent family history HSV-1 (herpes simplex virus 1) infection Surgical History (Updated 02/05/24 @ 15:15 by LONI Cantu) Hx of tooth extraction H/O right wrist surgery Social History Housing: House Alcohol intake: never Patient Tobacco Use Status: Former Tobacco user Tobacco use type: Cigarette Cigarettes Per Day: 5 Years Smoked: 35 e-Cigarette/Vaping Use: Never Used service: No Current occupational status: disabled Cognitive needs: No Hearing needs: No Vision needs: No Review of Systems Const All systems reviewed & are unremarkable except as noted in HPI and below Physical Exam Const General: cooperative, healthy appearing, comfortable, no acute distress, well developed and alert Orientation/consciousness: patient oriented x3 HEENT Head: Yes normal to inspection, Yes normocephalic and Yes atraumatic Eyes General: appearance normal, both eyes and all related structures Resp Effort & Inspection: normal respiratory effort and able to speak in complete sentences Cardio Rate: regular rate Peripheral pulses: Peripheral pulses 2+ throughout GI Palpation (GI): Soft to palpation Skin Lesions: no lesions Rashes: no rashes Neuro General: patient oriented x3 Extrem Other: Left knee: Skin intact, no erythema or joint effusion. No specific tenderness along the medial and lateral joint line. Full ROM with crepitus. Significant pitting edema from the knee to the foot and ankle. Calf is supple, non tender. No ligamentous laxity. NVI. ? Assessment & Plan Assessment & Plan (1) Synovial cyst of popliteal space [Parry], left knee: Code(s): M71.22 - Synovial cyst of popliteal space [Parry], left knee Category: Medical Plan I do not see any infectious source on exam and the last 3 US were negative for any blood clot but positive for parry cyst and subsequently for a ruptured parry cyst. I recommend elevation and ankle pumps and a prescription of knee-high compression sleeve was sent to his pharmacy. An order for physical therapy was also placed to work on ankle ROM and edema control of the LLE. If symptoms persist or worsen, patient will contact the office, otherwise follow-up as needed. Orders: Orders XR knee LT 3V Today M25.562 - Pain in left knee XR knee RT 1V Today M25.561 - Pain in right knee PT Evaluation and Treatment Today M71.22 - Synovial cyst of popliteal space [Parry], left knee Medications: New [knee high compression stocking] 30/40mmHG 1 ea 0RF Edema R60.9 - Edema, unspecified Patient Instructions: Scribed for Ta-Lisa Kramer PA-C, by Ry Hall medical observer, on 02/05/2024 at 2:45 PM EST.? I, Jayjay Kramer PA-C, have personally reviewed and agree with the information entered by the scribe. Coding Level of Care Code New Pt Level 3 (56025) Complex EM visit Add On G2211 Diagnoses Synovial cyst of popliteal space [Parry], left knee M71.22
== END 2024-02-05 15:45 | disposition home or self-care (01) ==
PROVIDERS: Visit Provider Physician Assistant
DX: M71.22 Synovial cyst of popliteal space [Baker], left knee (principal)
CPT/HCPCS: 99203; G2211

== ENCOUNTER 2024-02-14 09:12 | Outpatient (AMB) | payer OTHER, SELFPAY ==
--- NOTE | 2024-02-14 09:13 | MHC.PC.OV ---
Vital Signs 02/14/24 09:21 02/14/24 09:43 Height 6 ft 2 in Weight 197 lb 8 oz BMI 25.4 BP 130/88 134/80 Blood Pressure Location Lt brachial Lt brachial Position Sitting Sitting Respiration 16 Pulse 99 Pulse Source Pulse Oximeter Temp 97.7 F Temp Source Oral Pulse Oximetry (%) 99 Oxygen Delivery Method Room Air Intake Visit Reasons: 1 mos HTN, labs review Intake Note: patient here for 1month follow up on HTN and lab review Senior Applications Analyst Required: No Allergies doxazosin [From Cardura] Adverse Reaction (Verified 02/14/24 09:37) Irritable flomax Adverse Reaction (Mild, Uncoded 02/14/24 09:37) Hypertension Medication List - Last Reconciled 02/14/24 by Brooke Vidal CNP blood sugar diagnostic (Freestyle InsuLinx Test Strips) As directed blood sugar diagnostic (FreeStyle Lite Strips) check blood sugar 2-3 times per day as directed blood-glucose meter As directed insulin glargine (Lantus Solostar U-100 Insulin) units subcut [knee high compression stocking 30/40mmHG] lancets (FreeStyle Lancets) As directed lisinopril 10 mg PO DAILY 30 days metformin 500 mg PO BID 30 days Tobacco use date assessed: 02/14/24 Dental Screening Dental Screen Date: 01/12/24 HPI HPI Comments History of Present Illness Details 53-year-old male presents for hypertension and review of recent lab results follow-up He admits to taking his medications as prescribed without adverse reactions He notes that his blood glucose is usually less than 170 two hours after meals or snacks. He admits to making healthy dietary choices, including limiting carbs He offers no complaints and denies acute symptoms at this time He is excited that he will soon start physical therapy for pain/Parry cyst of his left knee [facility] Medical History (Updated 02/14/24 @ 09:38 by Brooke Vidal CNP) No pertinent family history HSV-1 (herpes simplex virus 1) infection Surgical History (Updated 02/05/24 @ 15:15 by LONI Cantu) Hx of tooth extraction H/O right wrist surgery Social History Housing: House Alcohol intake: never Patient Tobacco Use Status: Former Tobacco user Tobacco use type: Cigarette Cigarettes Per Day: 5 Years Smoked: 35 e-Cigarette/Vaping Use: Never Used service: No Current occupational status: disabled Cognitive needs: No Hearing needs: No Vision needs: No Questionnaire Thrive Questionnaire Date Thrive assessed: 11/04/22 CARLOS-7 AMB Questionnaire CARLOS-7 Date CARLOS - 7 assessed: 01/12/24 Source: Developed by Drs. Yogi Braga, Carri Jade, Amado Pathak and colleagues, with an educational bhakti from [employer]. Review of Systems Const Details: Const Denies chills, Denies fatigue, Denies fever(s), Denies headache(s) and Denies weakness ENT Denies dizziness and Denies headache(s) Card Denies chest pain, Denies lightheadedness, Denies dyspnea and Denies other (Palpitations) Resp Denies cough, Denies dyspnea, Denies wheezing and Denies other ( shortness of breath) GI Denies abdominal pain, Denies melena, Denies hematochezia, Denies change in bowel habits, Denies dyspepsia and Denies nausea Denies hematuria and Denies dysuria Musc Reports abnormal gait, Reports left knee pain Skin/Breast Denies rash, Denies unusual bruising and Denies wounds Neuro Denies abnormal gait, Denies dizziness, Denies headache(s), Denies memory loss, Denies numbness, Denies Sensory deficit (Neuro), Denies tingling and Denies weakness Endo Denies cold intolerance, Denies fatigue, Denies heat intolerance, Denies polydipsia and Denies polyuria Aller/Immun Denies wheezing Physical exam (Primary Care) Vital Signs: Last Vital Signs Temp 97.7 F 02/14/24 09:21 Pulse 99 02/14/24 09:21 Resp 16 02/14/24 09:21 BP 130/88 02/14/24 09:21 Pulse Ox 99 02/14/24 09:21 Oxygen Delivery Method Room Air 02/14/24 09:21 BMI result Body Mass Index 25.4 Tobacco/Smoking Status: Tobacco use Status Tobacco use date assessed 02/14/24 02/14/24 09:19 Patient Tobacco Use Status Former Tobacco user 02/14/24 09:15 Tobacco use type Cigarette 02/14/24 09:15 e-Cigarette/Vaping Use Never Used 02/14/24 09:15 Thrive Assessment: Date of Thrive Assessment Date Thrive assessed 11/04/22 02/14/24 09:15 Const Other: General: no acute distress and well developed Nutritional Appearance: well nourished Orientation/consciousness: patient oriented x3 HENMT Head: Yes normocephalic and Yes atraumatic Eyes General: appearance normal, both eyes and all related structures Pupils: Equal, round and reactive pupils present EOM: EOMs intact bilaterally Resp Effort & Inspection: normal respiratory effort Auscultation: clear to auscultation bilaterally Cardio Rate: regular rate Rhythm: regular rhythm Heart sounds: S1 normal heart sound present, S2 normal heart sound present, no gallops, no murmurs and no rubs GI Palpation (GI): No Abdominal aortic bruit present, Soft to palpation, nontender, No hepatosplenomegaly present and No Rebound tenderness present Auscultation: normal bowel sounds General: Yes no CVA tenderness Back/Spine/Pelvis Back: no CVA tenderness Extremity Edema and tenderness of the left posterior leg Skin General: warm and dry. Normal skin color. Normal skin turgor Neuro General: patient oriented x3, gait unsteady and no focal neuro deficit Cranial nerves: Yes Equal, round and reactive pupils present Cognition (Neuro): normal cognition Gait exam (Neuro): Unsteady gait present Sensory Exam: No Sensory deficit (Neuro) Psych Appearance: grossly normal Affect: normal affect Attitude: cooperative Thought process: Normal thought process present Coding Level of Care Code Est Pt Level 4 (92274) Diagnoses Hypertension I10 Hypercholesterolemia E78.00 Mild anemia D64.9 Synovial cyst of popliteal space [Parry], left knee M71.22 Assessment & Plan Assessment & Plan (1) Hypertension: Code(s): I10 - Essential (primary) hypertension Category: Medical Plan: Resting blood pressure is 134/80 slightly above goal of less than 130/80 Continue current treatment regimen Low-sodium diet encouraged Follow-up in 2 months or sooner with symptoms or concerns Verbalized understanding and agreed with the treatment plan (2) Hypercholesterolemia: Code(s): E78.00 - Pure hypercholesterolemia, unspecified Category: Medical Plan: Recent LDL level is 123, above goal of less than 100. HDL is low, 33 Will start atorvastatin 20 mg every night. Advised to take as prescribed. Instructed on the risks, benefits, and potential adverse reactions of the medication Advised to limit foods high in saturated fat and avoid foods high in trans fat Routine exercise encouraged Encouraged to fast for 10-12 hours, may drink water only, and get blood work done before his next visit Follow-up in 2 months Verbalized understanding and agreed with the plan (3) Mild anemia: Code(s): D64.9 - Anemia, unspecified Category: Medical Plan: Recent RBC and H&H levels or slightly low, 4.3 and 13.5/40.9 respectively Likely mild chronic anemia due to diabetes and hypertension No acute symptoms Will monitor periodically based on symptoms Verbalized understanding and agreed with the plan (4) Synovial cyst of popliteal space [Parry], left knee: Code(s): M71.22 - Synovial cyst of popliteal space [Parry], left knee Category: Medical Plan: Edema and tenderness of the left posterior leg May take Tylenol as needed Warm/cool compresses encouraged Follow-up PT as planned He was referred to orthopedics Return with symptoms or concerns Verbalized understanding and agreed with the plan Medications: New atorvastatin 20 mg PO BEDTIME 90 days 90 tabs 1RF
[2024-02-14 09:21] VITALS: BP 130/88; PULSE 99; RESP 16; TEMP 36.5; O2SAT 99; BMI 25.4
[2024-02-14 09:43] VITALS: BP 134/80
== END 2024-02-14 09:56 | disposition home or self-care (01) ==
PROVIDERS: Visit Provider Nurse Practitioner Family
DX: I10 Essential (primary) hypertension (principal); E78.00 Pure hypercholesterolemia, unspecified; D64.9 Anemia, unspecified; M71.22 Synovial cyst of popliteal space [Baker], left knee

== ENCOUNTER → 2024-02-14 09:12 | Outpatient (BNVA) | payer OTHER, SELFPAY | PROVIDERS: Visit Provider Nurse Practitioner Family | DX: I10 Essential (primary) hypertension (principal); E78.00 Pure hypercholesterolemia, unspecified; D64.9 Anemia, unspecified; M71.22 Synovial cyst of popliteal space [Baker], left knee | CPT/HCPCS: 99212 ==

== ENCOUNTER 2024-03-01 08:00 | Outpatient (RCR) | payer OTHER, SELFPAY ==
--- NOTE | 2024-02-23 10:24 | MHC.PT.EP ---
[facility] [place] Office [place] [facility] [place] Office [address] Julio Calloway [address] [phone] F: [phone] F: [phone] F: [phone] F: [phone] Physical Therapy Plan of Care Date of Evaluation: 02/23/24 Date of Surgery: Diagnosis: LEFT knee pain; synovial cyst popliteal fossa (barry's cyst) RS Assessment: Yoel is a pleasant 53 y.o. male who is referred to PT by Jayjay Kramer PA-C with Dx of LEFT knee pain; synovial cyst popliteal fossa (barry's cyst). Patient impairments include significant pitting edema in L LE, limited ROM in L ankle and knee, weakness in L LE, antalgic gait and pain. Patient current functional limitations are stair use (sometimes goes down sideways), walking long distances, bending/squatting. Patient will benefit from skilled PT to address aforementioned impairments and functional limitations to meet established goals. Frequency and Duration: The patient will be seen 2x/week for 4 weeks Short Term Goals: 2 weeks Patient demonstrates consistency and independence with HEP to self manage symptoms. Patient presents with reduced dependent edema with swelling at mid calf measuring 42cm. Stator Winder Goals: 4 weeks Patient presents with L ankle DF 0 degrees to help normalize gait pattern on level surfaces. Patient presents with L knee extension 0 degrees to be able to normalize step over step pattern utilizing stairs and railings. Treatment Plan: Modalities to reduce pain, spasms and effusion. Manual therapy to restore motion and function. Therapeutic exercise to improve strength and flexibility. Neuromuscular re-education for posture and balance. Therapeutic activities to return to functional activities of daily living. Electronically signed by: Felipe Wiley, PT, DPT Please sign and return to therapist. Thank you for your referral.
--- NOTE | 2024-04-19 15:38 | MHC.PT.DC ---
[facility] [place] Office [place] Office [place] Office [address] Julio Calloway [address] [phone] F: [phone] F: [phone] F: [phone] F: [phone] Physical Therapy Discharge Report Diagnosis: LEFT knee pain; synovial cyst popliteal fossa (barry's cyst) RS Date of Surgery: Date of Evaluation: 02/23/24 Date of Discharge: 04/19/24 Treatments to Date: 2 Cancellations to Date: 7 No Shows to Date: 0 Discharge Status: Patient Elected to Stop Discharge Summary: Yoel called to self discharge from physical therapy, no reason given. He was only seen for 2 PT visits. Electronically signed by: Felipe Wiley, PT, DPT Please sign and return to therapist. Thank you for your referral.
== END 2024-04-19 15:38 | disposition home or self-care (01) ==
LOC: HO.PT 08:00
PROVIDERS: PCP Nurse Practitioner Family; Visit Provider Physician Assistant
DX: M71.22 Synovial cyst of popliteal space [Baker], left knee (principal)
CPT/HCPCS: 97110; 97161; 97535